=== PATIENT | female | born 1970 | race Caucasian/White ===

== ENCOUNTER 2017-02-16 12:22 | Inpatient (IN) ==
[2017-02-16] MEDS ORDERED: Aspirin 81 MG TAB.CHEW PO ONE (13:25)
--- NOTE | 2017-02-16 13:43 | Emergency Department Note ---
Disposition Clinical Impression: Chest pain Qualifiers: Chest pain type: unspecified Qualified Code(s): R07.9 - Chest pain, unspecified Disposition: Admitted As Inpatient Condition: Good Time of Disposition: 20:00 Chest Pain HPI - General Chief Complaint: ED Chest Pain Stated Complaint: Twinges of CP for last 2-3 wks Time Seen by Provider: 02/16/17 13:09 Source: patient Limitations: no limitations Vital Signs Reviewed: Yes Nursing Notes Reviewed: Yes - History of Present Illness HPI Narrative: Mrs. Joe is a 46-year-old woman with a history of diabetes, hypertension, valvular heart disease, COPD, CAD who presents to the ED with acute chest pain that has been going on for approximately one week in duration. She says that this pain is left-sided chest pain with radiation towards the left jaw and left arm, and is a 6 out of 10 in intensity. Described as a pressure sensation. Although it is constant the patient does have intermittent periods of improvement and worsening. In addition, she does admit to palpitations, shortness of breath and some diaphoresis. Nothing seems to make the pain any better, however she has noticed shortness of breath does get exacerbated with exertion, however she said that this may be a chronic problem. Significantly, the patient does admit that she has had a "silent" heart attack in the past, approximately 15 years ago. She says that this feels very similar to the time that she had chest pain previously. In association with these symptoms, the patient says that she has been increasingly fatigued and tired. She says that she is actually almost lethargic, noting that her has been unable to wake her on several occasions. She denies pleuritic pain, and radiation towards the back. She denies recent travel, active cancer, use of hormones or steroids, recent surgery or hospitalization. She has not had any fevers, chills. Severity scale (1-10): 7 - Related Data Home Medications Medication Instructions Recorded Confirmed Aclidinium [place] [Tudorza 400 mcg IH BID 02/16/17 02/16/17 Pressair] Albuterol Sulfate [Albuterol 2 puff IH Q4HR PRN 02/16/17 02/16/17 Inhaler] Budesonide/Formoterol 160/4.5 1 puff IH BIDR 02/16/17 02/16/17 [Symbicort 160/4.5] EPINEPHrine [Epipen] 0.3 mg IM ONCE PRN 02/16/17 02/16/17 Fluticasone Propionate Nasal 1 spr NS DAILY PRN 02/16/17 02/16/17 [Flonase] Furosemide [Lasix] 20 mg PO DAILY 02/16/17 02/16/17 LORazepam [Ativan] 0.5 mg PO DAILY PRN 02/16/17 02/16/17 Linaclotide [Linzess] 145 mcg PO DAILY 02/16/17 02/16/17 Montelukast [Singulair] 10 mg PO HS 02/16/17 02/16/17 Oxygen 2 l NS HS PRN 02/16/17 02/16/17 Quetiapine Fumarate [Quetiapine 200 mg PO HS 02/16/17 02/16/17 Fumarate ER] Sertraline [Zoloft] 200 mg PO DAILY 02/16/17 02/16/17 hydroCHLOROthiazide 25 mg PO DAILY 02/16/17 02/16/17 [Hydrochlorothiazide] Allergies Allergy/AdvReac Type Severity Reaction Status Date / Time barium sulfate AdvReac Hives Verified 02/16/17 13:57 iodine AdvReac Hives Verified 02/16/17 13:57 latex AdvReac Hives Verified 02/16/17 14:22 Penicillins AdvReac Hives Verified 02/16/17 13:57 prochlorperazine AdvReac See Verified 02/16/17 13:57 [From Compazine] Comments Constitutional: Reports: weakness. Denies: fever, chills, weight change Eyes: Reports: vision change (About 1 week) ENT ED: Denies: congestion Cardiovascular: Reports: chest pain, palpitations, dyspnea on exertion. Denies : edema, syncope Respiratory: Reports: cough, dyspnea. Denies: wheezes, sputum production Gastrointestinal: Reports: abdominal pain, nausea. Denies: vomiting Genitourinary: Reports: frequency. Denies: urgency, hematuria Musculoskeletal: Reports: neck pain. Denies: back pain Neurological: Denies: headache, weakness, numbness Psychiatric: Reports: anxiety. Denies: depression Endocrine: Reports: heat or cold intolerance, polydipsia. Denies: fatigue Hematological/Lymphatic: Denies: easy bleeding Chest Pain PMH - Past Medical History Medical history: Reports: asthma, COPD, coronary artery disease, diabetes, hyperlipidemia, hypertension, thyroid disease, valvular heart disease Psychiatric history: Reports: no psych history - Social History Smoking Status: Never smoker Alcohol use: Reports: none Drug use: Reports: none Physical Exam Gen.: Vitals noted. No acute distress. AAOx3 HEENT: oropharynx clear, Normocephalic, atraumatic, poor dentition Neck: Supple. No adenopathy. Cardiac: RRR, no murmur, +S1/S2 Pulmonary: CTA bilaterally, no wheezes, rales or rhonchi, equal chest expansion Abdomen: soft, nontender, BS noted, no guarding Extremities: no BLE edema, nontender calf, no cyanosis or clubbing Neuro: A&Ox3, moves all extremities, no focal deficits Psych: Appropriate mood and behavior - General Limitations: no limitations General appearance: alert, in no apparent distress Course Vital Signs Temperature 98.6 F 02/16/17 13:00 Pulse Rate 77 02/16/17 13:00 Respiratory Rate 18 02/16/17 13:00 Blood Pressure 144/94 02/16/17 13:00 O2 Sat by Pulse Oximetry 96 02/16/17 13:00 Temperature 97.3 F L 02/16/17 19:05 Pulse Rate 70 02/16/17 19:05 Respiratory Rate 18 02/16/17 19:05 Blood Pressure 126/80 02/16/17 19:05 O2 Sat by Pulse Oximetry 94 02/16/17 19:05 Oxygen Delivery Oxygen Delivery Nasal Cannula Chest Pain - MDM Narrative Medical decision making narrative: I reviewed the patient's labs, imaging, medical records. The patient does present with a previously undocumented left bundle branch block and a one-week history of intermittent chest pain over the past week. Although the patient's chest pain exertional in nature it is relieved by nitroglycerin and it similar to an apparent cardiac event in the past. Initial troponins are negative, and I did monitor the patient's EKG throughout her visit with repeats which did not change throughout her stay. Although the patient did have an elevated white blood cell count, she did not have any other clinical indication of infection at this time. The patient additionally did have a mild hypokalemia 3.1, I repleted this with oral potassium. I did give patient aspirin and nitroglycerin on arrival. I did speak with cardiology about this patient, and they said that with a negative troponin the patient likely does not need any intervention at this time. I spoke with the hospitalist who accepted this patient to telemetry. The patient understands and agrees with this plan. - Differential Diagnosis Likely: chest pain - Medical Records Medical records reviewed: Yes I reviewed the patient's medical records. - Lab Data Lab results reviewed: Yes I reviewed the patient's lab results. Result diagrams: 02/16/17 13:44 02/16/17 13:44 Lab Results 02/16/17 02/16/17 02/16/17 Range/Units 07:31 13:44 13:44 WBC 13.1 H (4.3-11.1) K/mcL RBC 4.38 (3.82-4.97) M/mcL Hgb 12.6 (11.5-15.4) g/dL Hct 36.9 (35.3-44.9) % MCV 84.2 (83.0-100.0) fL MCH 28.8 (28.0-33.3) pg MCHC 34.1 (31.6-35.5) g/dL RDW 15.0 H (11.5-14.5) % Plt Count 353 (140-400) K/mcL MPV 9.5 (9.4-12.4) fL Immature Gran % 0.8 (0-4) % Seg Neutrophils % 57.0 % Lymphocytes % 31.5 % Monocytes % 7.2 % Eosinophils % 3.0 % Basophils % 0.5 % Neutrophils # 7.5 (1.6-8.9) K/mcL Lymphocytes # 4.1 (0.6-4.6) K/mcL Monocytes # 0.9 (0.0-1.3) K/mcL Eosinophils # 0.4 (0.0-0.6) K/mcL Basophils # 0.1 (0.0-0.2) K/mcL PT 12.2 H (9.4-12.1) Seconds INR 1.1 APTT 31.6 (26.0-36.0) Seconds Sodium (136-145) mEq/L Potassium (3.5-5.1) mEq/L Chloride (98-107) mEq/L Carbon Dioxide (23-29) mEq/L BUN (6-20) mg/dL Creatinine (0.60-1.20) mg/dL Est GFR ( Amer) (> 60) Est GFR (Non-Af Amer) (> 60) BUN/Creatinine Ratio (6-26) Glucose (70-105) mg/dL Calculated Osmolality (280-300) Calcium (8.6-10.3) mg/dL Troponin I (< 0.04) ng/mL B-Natriuretic Peptide 86 (Less than 100) pg/mL 02/16/17 02/16/17 Range/Units 13:44 13:44 WBC (4.3-11.1) K/mcL RBC (3.82-4.97) M/mcL Hgb (11.5-15.4) g/dL Hct (35.3-44.9) % MCV (83.0-100.0) fL MCH (28.0-33.3) pg MCHC (31.6-35.5) g/dL RDW (11.5-14.5) % Plt Count (140-400) K/mcL MPV (9.4-12.4) fL Immature Gran % (0-4) % Seg Neutrophils % % Lymphocytes % % Monocytes % % Eosinophils % % Basophils % % Neutrophils # (1.6-8.9) K/mcL Lymphocytes # (0.6-4.6) K/mcL Monocytes # (0.0-1.3) K/mcL Eosinophils # (0.0-0.6) K/mcL Basophils # (0.0-0.2) K/mcL PT (9.4-12.1) Seconds INR APTT (26.0-36.0) Seconds Sodium 139 (136-145) mEq/L Potassium 3.1 L (3.5-5.1) mEq/L Chloride 109 H (98-107) mEq/L Carbon Dioxide 20 L (23-29) mEq/L BUN 5 L (6-20) mg/dL Creatinine 0.55 L (0.60-1.20) mg/dL Est GFR ( Amer) > 60 (> 60) Est GFR (Non-Af Amer) > 60 (> 60) BUN/Creatinine Ratio 9 (6-26) Glucose 100 (70-105) mg/dL Calculated Osmolality 285 (280-300) Calcium 8.9 (8.6-10.3) mg/dL Troponin I < 0.03 (< 0.04) ng/mL B-Natriuretic Peptide (Less than 100) pg/mL - Radiology Data Radiology results reviewed: Yes I reviewed the patient's radiology results. - EKG Data EKG attestation: Yes I reviewed and interpreted this EKG. EKG results narrative: EKG demonstrates sinus rhythm with left axis deviation and a previously undocumented left bundle branch block with a ventricular rate of 77 UT interval of 186 QRS duration 149 QTC 447 Heart Score - Score History: Moderately Suspicious EKG: Non Specific repolarisation Disturbance Age: 45-65 Risk Factors: 1-2 risk factors Troponin: Less than normal limit HEART Score Total: 4
[2017-02-16] MEDS: Nitroglycerin 0.4 MG TAB.SUBL SL ONE ×3 (13:47→15:11)
[2017-02-16 13:52] LABS: Basophils # 0.1 K/mcL (0.0-0.2); Basophils % 0.5 %; Eosinophils # 0.4 K/mcL (0.0-0.6); Hematocrit 36.9 % (35.3-44.9); Hemoglobin 12.6 g/dL (11.5-15.4); Immature Granulocytes % 0.8 % (0-4); Lymphocytes # 4.1 K/mcL (0.6-4.6); Lymphocytes % 31.5 %; Mean Corpuscular HGB Conc 34.1 g/dL (31.6-35.5); Mean Corpuscular Hemoglobin 28.8 pg (28.0-33.3); Mean Corpuscular Volume 84.2 fL (83.0-100.0); Mean Platelet Volume 9.5 fL (9.4-12.4); Monocytes # 0.9 K/mcL (0.0-1.3); Monocytes % 7.2 %; Neutrophils # 7.5 K/mcL (1.6-8.9); Platelet Count 353 K/mcL (140-400); Red Blood Count 4.38 M/mcL (3.82-4.97)
--- NOTE | 2017-02-16 13:52 | Emergency Department Note ---
START Narrative - START START: I examined this patient and my medical decision-making was reviewed with the PHARMACY MANAGER/PA/Advanced Practice Nurse/Resident Physician. I agree with the documented findings, disposition and treatment plan as described except to the extent set forth below. The patient has chest pain which is constant but intermittently worse radiation to the left arm and jaw and no pleuritic aspect or radiation to the back. Symptoms are concerning for ischemia. She does have a positive family history. The patient does have testing pending. Her EKG shows normal sinus rhythm with a rate of 77 and left bundle branch block at 12:41 PM and a repeat EKG at 1:30 PM is similar with a rate of 71 and also showing left bundle branch block 1352 I did speak with Dr. Mederos from cardiology who feels that the patient can be admitted to the hospitalist. Because the pain has been constant with a negative troponin does not feel that a second troponin is necessary at this time. We did discuss the onset of the new left bundle branch block. 1715 I did speak with Dr. Meier and we discussed the conversation with Dr. Mederos and the patient will be admitted to his service for further evaluation of possible acute coronary syndrome 1736
[2017-02-16 14:02] LABS: Calcium 8.9 mg/dL (8.6-10.3); Carbon Dioxide 20 mEq/L (23-29); Chloride 109 mEq/L (98-107); Potassium 3.1 mEq/L (3.5-5.1); Sodium 139 mEq/L (136-145)
[2017-02-16 14:08] LABS: BUN/Creatinine Ratio 9 (6-26); Blood Urea Nitrogen 5 mg/dL (6-20); Glucose 100 mg/dL (70-105); Osmolality,Calculated 285 (280-300); eGFR For African Americans > 60 (> 60); eGFR For Non-African Americans > 60 (> 60)
[2017-02-16 14:14] LABS: INR 1.1; Prothrombin Time 12.2 Seconds (9.4-12.1)
[2017-02-16 14:16] LABS: Activated Partial Thrombo Time 31.6 Seconds (26.0-36.0)
[2017-02-16] MEDS ORDERED: Fluticasone Propionate Nasal 50 MCG/SPRAY BOTTLE NS PRN (21:30)
[2017-02-16] MEDS ORDERED: Naloxone 0.4 MG/ML INJ IVP PRN (21:31)
--- NOTE | 2017-02-16 21:43 | Internal Med History&Physical ---
Date of Encounter: 02/16/17 Time of Encounter: 21:41 Assessment and Plan (1) LBBB (left bundle branch block) Current visit: Yes Status: Acute check TTE , trend trop consult cardiac for eval and possible LHC vs. stress first (2) HTN (hypertension) Current visit: Yes Status: Acute Qualifiers: Hypertension type: essential hypertension Qualified Code(s): I10 - Essential (primary) hypertension (3) COPD (chronic obstructive pulmonary disease) Current visit: Yes Status: Acute continue meds chronic Qualifiers: COPD type: chronic bronchitis Qualified Code(s): J41.0 - Simple chronic bronchitis Internal Medicine - H&P: HPI Chief complaint: Abnormal pre-op EKG History of present illness: Ms. Joe is a 46 year old female who presents for cardiac eval after abnormal pre-op testing. She was down in pre-op today for testing in preparation for L knee revision surgery with Dr Sánchez. EKG with rate 77, LBBB that is new (personally reviewed) . On review of symptoms, she reports CP symptoms for the last 1 week described as squeezing in sensation, radiating to the neck and arm. She reports a "silent heart attack" in 1999 in [facility] and had a LHC w/o need for stent She has a family hx of CAD, significant heart hx of family. Past Med Surg Social Fam HX - Past Medical History Medical history: asthma, COPD, coronary artery disease, diabetes, hyperlipidemia , hypertension, thyroid disease, valvular heart disease Psychiatric history: no psych history - Past Surgical History Surgical History: other (knee surgeries prior) - Social History Smoking Status: Never smoker Smokeless Tobacco Status: No Alcohol use: none Drug use: none - Family History Mother Living Status: Still Living Hx Family Cardiac Disorders: Yes (stents fistula) Father Living Status: Still Living Hx Family Cardiac Disorders: Yes (stents) Grandmother Living Status: Hx Family Cardiac Disorders: Yes (CO at 40) Internal Medicine - H&P: Meds Aclidinium [place] [Tudorza Pressair] 400 mcg IH BID 02/16/17 [History] Albuterol Sulfate [Albuterol Inhaler] 2 puff IH Q4HR PRN 02/16/17 [History] Budesonide/Formoterol 160/4.5 [Symbicort 160/4.5] 1 puff IH BIDR 02/16/17 [ History] EPINEPHrine [Epipen] 0.3 mg IM ONCE PRN 02/16/17 [History] Fluticasone Propionate Nasal [Flonase] 1 spr NS DAILY PRN 02/16/17 [History] Furosemide [Lasix] 20 mg PO DAILY 02/16/17 [History] LORazepam [Ativan] 0.5 mg PO DAILY PRN 02/16/17 [History] Linaclotide [Linzess] 145 mcg PO DAILY 02/16/17 [History] Montelukast [Singulair] 10 mg PO HS 02/16/17 [History] Oxygen 2 l NS HS PRN 02/16/17 [History] Quetiapine Fumarate [Quetiapine Fumarate ER] 200 mg PO HS 02/16/17 [History] Sertraline [Zoloft] 200 mg PO DAILY 02/16/17 [History] hydroCHLOROthiazide [Hydrochlorothiazide] 25 mg PO DAILY 02/16/17 [History] 3 Allergy/AdvReac Type Severity Reaction Status Date / Time barium sulfate AdvReac Hives Verified 02/16/17 13:57 iodine AdvReac Hives Verified 02/16/17 13:57 latex AdvReac Hives Verified 02/16/17 14:22 Penicillins AdvReac Hives Verified 02/16/17 13:57 prochlorperazine AdvReac See Verified 02/16/17 13:57 [From Compazine] Comments All Systems PM: A 10-system review of systems was performed and is negative for pertinent findings except as documented above in the HPI. Review of systems: ROS 14 point review of systems reviewed as best as possible given presentation. Pertinent positive or negative as per HPI or otherwise reviewed as negative - Constitutional Vitals: Temp Pulse Resp BP Pulse Ox 97.3 F L 70 18 126/80 94 02/16/17 19:05 02/16/17 19:05 02/16/17 19:05 02/16/17 19:05 02/16/17 19:05 Exam: General - AAO x 3 Psych - Appropriate affect/speech. No agitation Eyes - MATIAS. Eye lids intact. No scleral icterus Heart - Sinus. RRR. S1 and S2 present. No added HS/murmurs appreciated. No elevated JVD appreciated. Lung - Adequate air entry b/l, No crackles/wheezes appreciated GI - Soft, non-tender. No hepatosplenomegaly/ascites. BS+ - No CVA/suprapubic tenderness or palpable bladder distension Internal Med - H&P Results - Labs CBC & Chem 7: 02/16/17 13:44 02/16/17 13:44
[2017-02-16] MEDS ORDERED: Acetaminophen 325 MG TABLET PO PRN (22:28)
[2017-02-16] MEDS: Budesonide/Formoterol 160/4.5 MDI IH SCH (22:48)
[2017-02-16] MEDS: *HR* Morphine 2 MG/ML SYRINGE IVP PRN (23:12)
[2017-02-17] MEDS: *HR* Morphine 2 MG/ML SYRINGE IVP PRN ×4 (03:33→22:35)
[2017-02-17] MEDS: Budesonide/Formoterol 160/4.5 MDI IH SCH ×2 (08:50→22:18)
[2017-02-17] MEDS: Linaclotide [Linzess] 145 MCG PO SCH (08:51)
[2017-02-17] MEDS: Furosemide 20 MG TABLET PO SCH (08:52)
[2017-02-17] MEDS: hydroCHLOROthiazide 25 MG TABLET PO SCH (08:52)
--- NOTE | 2017-02-17 08:52 | Electrocardiograph Report ---
[address] [place], [place] [address] Test Date: 2017-02-16 Pat Name: Sena Joe Department: 102 Room: 3B Gender: Director Cardiac: La : 1970 Requested By: Nirav Lincoln Order Number: [id number] Reading MD: Peña Davison MD Measurements Intervals [place] Rate: 71 P: 49 [place]: 191 QRS: -55 QRSD: 146 T: 98 QT: 470 QTc: 492 Interpretive Statements SINUS RHYTHM MARKED LEFT AXIS DEVIATION LEFT BUNDLE BRANCH BLOCK Electronically Signed On 02-17-2017 8:50:46 EST by Peña Davison MD
[2017-02-17] MEDS ORDERED: Regadenoson 0.4 MG/5 ML SYRINGE IVP ONE (09:17)
--- NOTE | 2017-02-17 12:23 | Electrocardiograph Report ---
[address] [place], [place] [address] Test Date: 2017-02-16 Pat Name: Sena Joe Department: 103 Room: 3B Gender: F Resident Service Coordinator: DONALD : 1970 Requested By: Gaby Truong Order Number: [id number] Reading MD: Peña Davison MD Measurements Intervals [place] Rate: 71 P: 38 [place]: 194 QRS: -57 QRSD: 149 T: 87 QT: 449 QTc: 471 Interpretive Statements SINUS RHYTHM MARKED LEFT AXIS DEVIATION LEFT BUNDLE BRANCH BLOCK Electronically Signed On 02-17-2017 12:22:24 EST by Peña Davison MD
--- NOTE | 2017-02-17 12:38 | Electrocardiograph Report ---
[address] [place], [place] [address] Test Date: 2017-02-17 Pat Name: Sena Joe Department: 113 Room: 3B Gender: F Hospital Cleaner: : 1970 Requested By: David Parker Order Number: [id number] Reading MD: Peña Davison MD Measurements Intervals [place] Rate: 62 P: -1 NM: 167 QRS: -50 QRSD: 144 T: 86 QT: 468 QTc: 473 Interpretive Statements SINUS RHYTHM MARKED LEFT AXIS DEVIATION LEFT BUNDLE BRANCH BLOCK Electronically Signed On 02-17-2017 12:36:11 EST by Peña Davison MD
--- NOTE | 2017-02-17 16:24 | Internal Med Progress Note ---
Date of Encounter: 02/17/17 Time of Encounter: 14:00 - Assessment and plan (1) CAD (coronary artery disease) Current Visit: Yes Status: Acute Assessment and plan: patient reports history of OR at 29 years of age. Follows with cardiology at [facility]. Now with constant chest pain. Serial troponin negative, EKG without acute ST changes. TTE with EF 60%, no wall motion abnormality. Nuclear stress test negative for ischemia or infarct. Patient reports that her primary supervisor [employer] department was planning an outpatient C. Still with complaints of chest pain. Cardiology consult. Cont ASA Qualifiers: Coronary Disease-Associated Artery/Lesion type: [place] artery [place] vs. transplanted heart: [place] heart Associated angina: with unspecified angina Qualified Code(s): I25.119 - Atherosclerotic heart disease of [place] coronary artery with unspecified angina pectoris (2) HTN (hypertension) Current Visit: Yes Status: Acute Assessment and plan: per hx. BP controlled. Cont home BP medication. Monitor BP and titrate PRN Qualifiers: Hypertension type: essential hypertension Qualified Code(s): I10 - Essential (primary) hypertension (3) COPD (chronic obstructive pulmonary disease) Current Visit: Yes Status: Acute Assessment and plan: per hx. CXR non-acute. No evidence of exacerbation. Continue home inhalers Qualifiers: COPD type: chronic bronchitis Qualified Code(s): J41.0 - Simple chronic bronchitis (4) DVT prophylaxis Current Visit: Yes Status: Acute Assessment and plan: heparin - Subjective Interval history: Seen and examined at bedside. Patient is due to nd, information obtained from chart review and patient report. Patient is still complaining of left-sided chest pain that radiates to jaw and down arm. Describes pain as a twinging sensation, nothing makes better or worse. She does have a cardiac history and follows with cardiology as [facility]. Patient reports that her supervisor [employer] department is planning on a left heart catheterization. Stress test pending. Continue to monitor on telemetry for now. No shortness of breath. - Constitutional Vitals: Temp Pulse Resp BP Pulse Ox 98.4 F 85 17 131/79 94 02/17/17 15:33 02/17/17 15:33 02/17/17 15:33 02/17/17 15:33 02/17/17 15:33 General appearance: Present: A&O X 3, no acute distress - Head Head exam: Present: atraumatic, normocephalic - Eye Eye exam: Present: PERRL, conjuntiva pink, sclera anicteric Pupils: Present: PERRL - Neck Neck exam general surgery: Present: supple, trachea midline. Absent: lymphadenopathy - Respiratory Respiratory exam: Present: CTAB. Absent: accessory muscle use, rales, rhonchi, wheezes - Cardiovascular Cardiovascular exam: Present: RRR, +S1, +S2. Absent: diastolic murmur, gallop, rubs, systolic murmur - GI/Abdominal GI/Abdominal exam: Present: normal bowel sounds, soft, no peritoneal signs. Absent: distended, tenderness - Extremities Exam Extremities exam: Present: warm, radial pulses palpable and symmetrical. Absent : calf tenderness, cyanotic, pedal edema - Neurological Exam Neurological exam: Present: CN II-XII intact, oriented X3, no focal deficits. Absent: pronater drift, facial droop, speech deficit - Skin Skin exam: Present: dry, intact Internal Medicine: Result - Labs CBC & Chem 7: 02/16/17 13:44 02/16/17 13:44 Labs: Cardiac Enzymes 02/16/17 02/17/17 Range/Units 21:51 06:00 Troponin I < 0.03 < 0.03 (< 0.04) ng/mL - ABG Interpretation ABG results: PT/INR, D-dimer PT 12.2 Seconds (9.4-12.1) H 02/16/17 13:44 - Impressions Impressions Echocardiogram 02/17/17 21:47 Impressions: LVEF 60-65%. Normal LV chamber size, wall thickness and function. Moderate left ventricular diastolic dysfunction. Normal right ventricular structure and function. Mild mitral regurgitation. No evidence of pulmonary hypertension. Left Ventricular Wall Motion: Rest Echo Findings All wall segments showed normal motion. Findings: Study Quality * Technically adequate exam. ECG Findings * Normal sinus rhythm. Left Ventricle * LVEF 60-65%. * Normal LV chamber size, wall thickness and function. * Moderate left ventricular diastolic dysfunction. Right Ventricle * Normal right ventricular structure and function. Left Atrium * Mildly dilated left atrium. Right Atrium * Mildly dilated right atrium. Interatrial Septum * Interatrial septum not well evaluated. Aortic Valve * Trileaflet aortic valve with normal function. * No aortic stenosis. * No aortic regurgitation. Mitral Valve * Normal mitral valve structure. * Mild mitral regurgitation. * No mitral stenosis. Tricuspid Valve * Normal tricuspid valve structure and function. * Trace tricuspid regurgitation. * No evidence of pulmonary hypertension. Pulmonic Valve * Normal pulmonic valve structure and function. * No pulmonic regurgitation. Aorta * Normally sized aortic root. Pericardium * The pericardium appears normal. IVC * Normal IVC dimensions and inspiratory collapse. Pulmonary Artery * Normal visualized portions of the main pulmonary artery. Consult Discharge Plan - Plan Referrals: NONE,PCP [Primary Care Provider] -
[2017-02-17] MEDS: Aspirin 81 MG TAB.CHEW PO SCH (17:32)
[2017-02-17] MEDS: *HR* Heparin 5,000 UNIT/ML VIAL SQ SCH (20:35)
[2017-02-18] MEDS: *HR* Morphine 2 MG/ML SYRINGE IVP PRN (04:55)
[2017-02-18] MEDS: *HR* Heparin 5,000 UNIT/ML VIAL SQ SCH ×3 (04:55→21:38)
[2017-02-18 05:08] LABS: Hemoglobin A1C 5.2 %
[2017-02-18 05:15] LABS: BUN/Creatinine Ratio 18 (6-26); Blood Urea Nitrogen 9 mg/dL (6-20); Calcium 9.4 mg/dL (8.6-10.3); Carbon Dioxide 25 mEq/L (23-29); Chloride 105 mEq/L (98-107); Chol/HDL Ratio 3.5 (0-4.9); Cholesterol 179 mg/dL (< 200); Glucose 96 mg/dL (70-105); HDL Cholesterol 51 mg/dL (40-59); LDL Cholesterol,Calculated 101 mg/dL (0-99); Osmolality,Calculated 283 (280-300); Potassium 3.9 mEq/L (3.5-5.1); Sodium 137 mEq/L (136-145); Triglycerides 134 mg/dL (< 150); eGFR For African Americans > 60 (> 60); eGFR For Non-African Americans > 60 (> 60)
[2017-02-18] MEDS: Budesonide/Formoterol 160/4.5 MDI IH SCH ×2 (08:05→20:50)
[2017-02-18 09:34] LABS: Hematocrit 41.2 % (35.3-44.9); Hemoglobin 13.4 g/dL (11.5-15.4); Mean Corpuscular HGB Conc 32.5 g/dL (31.6-35.5); Mean Corpuscular Hemoglobin 28.6 pg (28.0-33.3); Mean Platelet Volume 9.8 fL (9.4-12.4); Platelet Count 331 K/mcL (140-400); Red Blood Count 4.68 M/mcL (3.82-4.97); Red Cell Distribution Width 15.4 % (11.5-14.5)
[2017-02-18] MEDS: hydroCHLOROthiazide 25 MG TABLET PO SCH (09:53)
[2017-02-18] MEDS: Aspirin 81 MG TAB.CHEW PO SCH (09:53)
[2017-02-18] MEDS: Furosemide 20 MG TABLET PO SCH (09:53)
[2017-02-18] MEDS: Linaclotide [Linzess] 145 MCG PO SCH (09:54)
[2017-02-18] MEDS: *HR* LORazepam 0.5 MG TABLET PO PRN (09:54)
[2017-02-18 10:59] LABS: Adenovirus Not Detected (Not Detect); Bordetella Pertussis Not Detected (Not Detect); Chlamydophila pneumoniae Not Detected (Not Detect); Coronavirus 229E Not Detected (Not Detect); Coronavirus HKU1 Not Detected (Not Detect); Coronavirus NL63 Not Detected (Not Detect); Coronavirus OC43 Not Detected (Not Detect); Human Metapneumovirus Not Detected (Not Detect); Human Rhinovirus/Enterovirus Not Detected (Not Detect); Influenza A Subtype 2009 H1 Not Detected (Not Detect); Influenza A Untypeable Not Detected (Not Detect); Influenza B Not Detected (Not Detect); Mycoplasma pneumoniae Not Detected (Not Detect); Parainfluenza Virus 1 Not Detected (Not Detect); Parainfluenza Virus 2 Not Detected (Not Detect); Parainfluenza Virus 3 Not Detected (Not Detect); Parainfluenza Virus 4 Not Detected (Not Detect); Respiratory Syncytial Virus ***DETECTED*** (Not Detect)
--- NOTE | 2017-02-18 11:37 | Cardiology Consult Note ---
Date of Encounter: 02/18/17 Time of Encounter: 11:35 Assessment and Plan (1) LORENZ (dyspnea on exertion) Current Visit: Yes Status: Chronic Possible angina equivalent however less likely with -ve stress test and recent - ve LHC. Possible HF with preserved EF due to DD. Hypertension may be culprit. Outpatient agresive medical management of HTN and CHF with primary Airport Security Screener at [facility] Code(s): R06.09 - Other forms of dyspnea SNOMED Code(s): 91398754 (2) Chest pain Current Visit: Yes Status: Chronic Likely non ischemic, no criteria for LHC at this time. okay to DC home and follow with her Airport Security Screener Qualifiers: Chest pain type: precordial pain Qualified Code(s): R07.2 - Precordial pain Discussion w patient/family: The assessment and plan as outlined above was discussed with the patient and/or family members who expressed understanding and agreement. All questions were answered. Thank you for involving us in the care of your patient. Please call with any questions. History of Present Illness Consult date: 02/18/17 Consult reason: Chest pain Chief complaint: Chest pain History of present illness: Ms. Joe is a 46 year old female with multipple CRFs presents with atypical chest pain felt as stabbing pain lastiig few seconds at a time with a constant baseline dull aching pain lasting weeks. Pain is non exertional however she does complain of LORENZ. No associated symptoms with her chest pain. Negative Canidda and EKG. Previous [facility] 2016 was unremarkable as per pt. Recent stress test performed at [facility] negative with a preserved EF. ECHO with preserved EF and moderate DD. Past Med Surg Social Fam HX - Past Medical History Medical history: asthma, COPD, coronary artery disease, diabetes, hyperlipidemia , hypertension, thyroid disease, valvular heart disease Psychiatric history: no psych history - Past Surgical History Surgical History: other (knee surgeries prior) - Social History Smoking Status: Never smoker Smokeless Tobacco Status: No Alcohol use: none Drug use: none - Family History Mother Living Status: Still Living Hx Family Cardiac Disorders: Yes (stents fistula) Father Living Status: Still Living Hx Family Cardiac Disorders: Yes (stents) Grandmother Living Status: Hx Family Cardiac Disorders: Yes (LA at 40) Medications and Allergies Aclidinium [place] [Tudorza Pressair] 400 mcg IH BID 02/16/17 [History] Albuterol Sulfate [Albuterol Inhaler] 2 puff IH Q4HR PRN 02/16/17 [History] Budesonide/Formoterol 160/4.5 [Symbicort 160/4.5] 1 puff IH BIDR 02/16/17 [ History] EPINEPHrine [Epipen] 0.3 mg IM ONCE PRN 02/16/17 [History] Fluticasone Propionate Nasal [Flonase] 1 spr NS DAILY PRN 02/16/17 [History] Furosemide [Lasix] 20 mg PO DAILY 02/16/17 [History] LORazepam [Ativan] 0.5 mg PO DAILY PRN 02/16/17 [History] Linaclotide [Linzess] 145 mcg PO DAILY 02/16/17 [History] Montelukast [Singulair] 10 mg PO HS 02/16/17 [History] Oxygen 2 l NS HS PRN 02/16/17 [History] Quetiapine Fumarate [Quetiapine Fumarate ER] 200 mg PO HS 02/16/17 [History] Sertraline [Zoloft] 200 mg PO DAILY 02/16/17 [History] hydroCHLOROthiazide [Hydrochlorothiazide] 25 mg PO DAILY 02/16/17 [History] 3 Allergy/AdvReac Type Severity Reaction Status Date / Time barium sulfate AdvReac Hives Verified 02/16/17 13:57 iodine AdvReac Hives Verified 02/16/17 13:57 latex AdvReac Hives Verified 02/16/17 14:22 Penicillins AdvReac Hives Verified 02/16/17 13:57 prochlorperazine AdvReac See Verified 02/16/17 13:57 [From Compazine] Comments All Systems Review: A 10-system review of systems was performed and is negative for pertinent findings except as documented above in the HPI. Physical Examination Vital Signs, Last 4 Hours Temp Pulse Resp BP Pulse Ox 02/18/17 11:21 97.5 F L 75 17 117/82 94 02/18/17 07:49 97.4 F L 76 18 133/86 93 General: Conversant, No Apparent Distress HEENT: Atraumatic, Normocephaly, Mucus Membranes Moist Neck: No JVD, Normal carotid pulses Cardiac: Reg Rate and Rhythm, Normal S1 and S2, No Murmur Lungs: Normal Breath Sounds, No Wheeze, Rales, Rhonchi Neuro: Alert and responsive, No focal deficits noted Abdomen: Soft, Non-Tender Skin: No rashes noted on visualized skin Musculoskeletal: No Chest Wall Tenderness Extremities: No Clubbing, No Cyanosis, No Edema, Normal Pulses Results 02/18/17 04:31 02/18/17 04:31 Lab Results 02/18/17 02/18/17 04:31 04:31 WBC 11.5 H Hgb 13.4 Hct 41.2 Plt Count 331 Sodium 137 Potassium 3.9 Chloride 105 Carbon Dioxide 25 BUN 9 Creatinine 0.51 L Glucose 96 Calcium 9.4 Consult Discharge Plan - Plan Referrals: NONE,PCP [Primary Care Provider] -
[2017-02-18] MEDS: *HR* OxyCODONE Immed Rel 5 MG TABLET PO PRN ×2 (12:34→21:37)
--- NOTE | 2017-02-18 18:32 | Internal Med Progress Note ---
Date of Encounter: 02/18/17 Time of Encounter: 13:00 - Assessment and plan (1) CAD (coronary artery disease) Current Visit: Yes Status: Acute Assessment and plan: patient reports history of UT at 29 years of age. Follows with cardiology at [facility]. Preadmission testing EKG with new LBBB and patient reported intermittent chest pain therefore was sent to ER. Serial troponin negative, EKG without acute ST changes. TTE with EF 60%, no wall motion abnormality. Nuclear stress test negative for ischemia or infarct. Evaluated by Cardiology who noted angina equivalent unlikely and chest pain possibly secondary to HF with preserved EF due to DD and/or hypertension may be culprit. Aggressive medical management recommended, no indication for LHC at this time. Furthermore, chest pain is reproducible bn exam. Cont ASA. Monitor on tele Qualifiers: Coronary Disease-Associated Artery/Lesion type: [place] artery [place] vs. transplanted heart: [place] heart Associated angina: with unspecified angina Qualified Code(s): I25.119 - Atherosclerotic heart disease of [place] coronary artery with unspecified angina pectoris (2) RSV infection Current Visit: Yes Status: Acute Assessment and plan: Resp disease panel positive for RSV. Afebrile, WBC trending down. CXR without infiltrate. Supportive care (3) HTN (hypertension) Current Visit: Yes Status: Acute Assessment and plan: per hx. BP controlled. Cont home BP medication. Monitor BP and titrate PRN Qualifiers: Hypertension type: essential hypertension Qualified Code(s): I10 - Essential (primary) hypertension (4) COPD (chronic obstructive pulmonary disease) Current Visit: Yes Status: Acute Assessment and plan: per hx. CXR non-acute. No evidence of exacerbation. Continue home inhalers Qualifiers: COPD type: unspecified COPD Qualified Code(s): J44.9 - Chronic obstructive pulmonary disease, unspecified (5) Osteoarthritis of left knee Current Visit: Yes Status: Acute Assessment and plan: per hx. Follows with Dr. Sánchez. Left knee replacement planned 02/20/17 Qualifiers: Osteoarthritis type: primary Qualified Code(s): M17.12 - Unilateral primary osteoarthritis, left knee (6) DVT prophylaxis Current Visit: Yes Status: Acute Assessment and plan: heparin - Subjective Interval history: Seen and examined at bedside. Says she is still having intermittent chest pain, has some SOB but nothing new from baseline. She does not feel she is ready to go home yet. - Constitutional Vitals: Temp Pulse Resp BP Pulse Ox 98.0 F 78 16 111/66 91 02/18/17 16:30 02/18/17 16:30 02/18/17 16:30 02/18/17 16:30 02/18/17 16:30 General appearance: Present: A&O X 3, no acute distress - Head Head exam: Present: atraumatic, normocephalic - Eye Eye exam: Present: PERRL, conjuntiva pink, sclera anicteric Pupils: Present: PERRL - Neck Neck exam general surgery: Present: supple, trachea midline. Absent: lymphadenopathy - Respiratory Respiratory exam: Present: chest wall tenderness, CTAB. Absent: accessory muscle use, rales, rhonchi, wheezes - Cardiovascular Cardiovascular exam: Present: RRR, +S1, +S2. Absent: diastolic murmur, gallop, rubs, systolic murmur - GI/Abdominal GI/Abdominal exam: Present: normal bowel sounds, soft, no peritoneal signs. Absent: distended, tenderness - Extremities Exam Extremities exam: Present: warm, radial pulses palpable and symmetrical. Absent : calf tenderness, cyanotic, pedal edema - Neurological Exam Neurological exam: Present: CN II-XII intact, oriented X3, no focal deficits. Absent: pronater drift, facial droop, speech deficit - Skin Skin exam: Present: dry, intact Internal Medicine: Result - Labs CBC & Chem 7: 02/18/17 04:31 02/18/17 04:31 Labs: Short CBC 02/18/17 Range/Units 04:31 WBC 11.5 H (4.3-11.1) K/mcL Hgb 13.4 (11.5-15.4) g/dL Hct 41.2 (35.3-44.9) % Plt Count 331 (140-400) K/mcL BMP 02/18/17 04:31 Sodium 137 Potassium 3.9 Chloride 105 Carbon Dioxide 25 BUN 9 Creatinine 0.51 L Glucose 96 Calcium 9.4 - ABG Interpretation ABG results: PT/INR, D-dimer PT 12.2 Seconds (9.4-12.1) H 02/16/17 13:44 Consult Discharge Plan - Plan Referrals: NONE,PCP [Primary Care Provider] -
[2017-02-18] MEDS: Ondansetron ODT 4 MG TAB.RAPDIS SL PRN (18:36)
[2017-02-19] MEDS: *HR* Heparin 5,000 UNIT/ML VIAL SQ SCH ×3 (05:43→20:11)
[2017-02-19] MEDS: *HR* OxyCODONE Immed Rel 5 MG TABLET PO PRN ×3 (05:43→19:59)
[2017-02-19] MEDS: Furosemide 20 MG TABLET PO SCH (09:38)
[2017-02-19] MEDS: Linaclotide [Linzess] 145 MCG PO SCH (09:38)
[2017-02-19] MEDS: Aspirin 81 MG TAB.CHEW PO SCH (09:38)
[2017-02-19] MEDS: hydroCHLOROthiazide 25 MG TABLET PO SCH (09:38)
[2017-02-19] MEDS: *HR* LORazepam 0.5 MG TABLET PO PRN (09:39)
[2017-02-19] MEDS: Budesonide/Formoterol 160/4.5 MDI IH SCH ×2 (11:03→21:59)
--- NOTE | 2017-02-19 15:20 | Internal Med Progress Note ---
Date of Encounter: 02/19/17 Time of Encounter: 12:30 - Assessment and plan (1) Osteoarthritis of left knee Current Visit: Yes Status: Acute Assessment and plan: per hx. Follows with Dr. Sánchez. Was at pre-admission testing on 02/17/17 when abnormal EKG was noted. Left knee replacement planned 02/20/17. Patient requested to stay inpatient for surgery. Dr. Sánchez aware. NPO at midnight. Qualifiers: Osteoarthritis type: primary Qualified Code(s): M17.12 - Unilateral primary osteoarthritis, left knee (2) CAD (coronary artery disease) Current Visit: Yes Status: Acute Assessment and plan: patient reports history of DC at 29 years of age. Follows with cardiology at [facility]. Preadmission testing EKG with new LBBB and patient reported intermittent chest pain therefore was sent to ER. Serial troponin negative, EKG without acute ST changes. TTE with EF 60%, no wall motion abnormality. Nuclear stress test negative for ischemia or infarct. Evaluated by Cardiology who noted angina equivalent unlikely and chest pain possibly secondary to HF with preserved EF due to DD and/or hypertension may be culprit. Aggressive medical management recommended, no indication for LHC at this time. Furthermore, chest pain is reproducible bn exam. Cont ASA. Monitor on tele Qualifiers: Coronary Disease-Associated Artery/Lesion type: [place] artery [place] vs. transplanted heart: [place] heart Associated angina: with unspecified angina Qualified Code(s): I25.119 - Atherosclerotic heart disease of [place] coronary artery with unspecified angina pectoris (3) RSV infection Current Visit: Yes Status: Acute Assessment and plan: Resp disease panel positive for RSV. Afebrile, WBC trending down. CXR without infiltrate. Supportive care (4) HTN (hypertension) Current Visit: Yes Status: Acute Assessment and plan: per hx. BP controlled. Cont home BP medication. Monitor BP and titrate PRN Qualifiers: Hypertension type: essential hypertension Qualified Code(s): I10 - Essential (primary) hypertension (5) COPD (chronic obstructive pulmonary disease) Current Visit: Yes Status: Acute Assessment and plan: per hx. CXR non-acute. No evidence of exacerbation. Continue home inhalers Qualifiers: COPD type: unspecified COPD Qualified Code(s): J44.9 - Chronic obstructive pulmonary disease, unspecified (6) DVT prophylaxis Current Visit: Yes Status: Acute Assessment and plan: heparin - Subjective Interval history: Seen and examined at bedside. Says she feels nauseated and still not able to go home. No chest pain or shortness of breath today. Generally encouraged her to ambulate/get out of bed for meals. Discussed with Dr. Sánchez and he is aware the patient will be staying again overnight and surgery still planned for tomorrow. - Constitutional Vitals: Temp Pulse Resp BP Pulse Ox 98.3 F 94 16 101/69 90 02/19/17 11:21 02/19/17 11:21 02/19/17 11:21 02/19/17 11:21 02/19/17 11:21 General appearance: Present: A&O X 3, no acute distress - Head Head exam: Present: atraumatic, normocephalic - Eye Eye exam: Present: PERRL, conjuntiva pink, sclera anicteric Pupils: Present: PERRL - Neck Neck exam general surgery: Present: supple, trachea midline. Absent: lymphadenopathy - Respiratory Respiratory exam: Present: CTAB. Absent: accessory muscle use, rales, rhonchi, wheezes - Cardiovascular Cardiovascular exam: Present: RRR, +S1, +S2. Absent: diastolic murmur, gallop, rubs, systolic murmur - GI/Abdominal GI/Abdominal exam: Present: normal bowel sounds, soft, no peritoneal signs. Absent: distended, tenderness - Extremities Exam Extremities exam: Present: warm, radial pulses palpable and symmetrical. Absent : calf tenderness, cyanotic, pedal edema - Neurological Exam Neurological exam: Present: CN II-XII intact, oriented X3, no focal deficits. Absent: pronater drift, facial droop, speech deficit - Skin Skin exam: Present: dry, intact Internal Medicine: Result - Labs CBC & Chem 7: 02/18/17 04:31 02/18/17 04:31 - ABG Interpretation ABG results: PT/INR, D-dimer PT 12.2 Seconds (9.4-12.1) H 02/16/17 13:44 Consult Discharge Plan - Plan Referrals: NONE,PCP [Primary Care Provider] -
[2017-02-20] MEDS: Ondansetron ODT 4 MG TAB.RAPDIS SL PRN (02:09)
[2017-02-20] MEDS: *HR* Heparin 5,000 UNIT/ML VIAL SQ SCH (06:18)
[2017-02-20] MEDS: *HR* OxyCODONE Immed Rel 5 MG TABLET PO PRN ×4 (06:19→22:56)
--- NOTE | 2017-02-20 06:58 | Orthopedics Progress Note ---
Date of Encounter: 02/20/17 Time of Encounter: 06:58 Subjective Interval history: Patient seen this morning cleared for revision surgery. We reviewed the risks and benefits as well as recovery. All questions were answered. The patient agreed to this treatment plan and appeared to understand the plan is reviewed. Objective Vital signs: Vital Signs Temp Pulse Resp BP Pulse Ox 02/20/17 03:07 98.2 F 89 16 113/75 95 02/19/17 22:44 98.6 F 84 16 111/77 97 02/19/17 22:02 14 98 02/19/17 18:31 98.4 F 85 16 115/81 98 02/19/17 15:41 97.9 F 86 18 116/76 92 02/19/17 11:21 98.3 F 94 16 101/69 90 02/19/17 11:04 18 95 02/19/17 07:42 97.7 F 84 18 119/87 95 Intake and Output 02/19/17 02/19/17 02/20/17 15:59 23:59 07:59 Intake Total 720 / 720 240 / 240 Output Total 600 / 600 1300 / 1300 900 / 900 Balance 120 / 120 -1060 / -1060 -900 / -900 Intake: Oral 720 / 720 240 / 240 Output: Urine 600 / 600 1300 / 1300 900 / 900 Other: Meal water pitcher Lunch Percent of Meal Consumed 100% 80% Weight 87.7 kg Blood Glucose* 113 101 Patient Weight 02/20/17 23:59 Weight 87.7 kg - Labs CBC & BMP: 02/18/17 04:31 02/18/17 04:31 Labs: Abnormal lab results WBC 11.5 K/mcL (4.3-11.1) H 02/18/17 04:31 RDW 15.4 % (11.5-14.5) H 02/18/17 04:31 PT 12.2 Seconds (9.4-12.1) H 02/16/17 13:44 Creatinine 0.51 mg/dL (0.60-1.20) L 02/18/17 04:31 POC Glucose 101 (58-89) H 02/19/17 19:59 LDL Cholesterol, Calc 101 mg/dL (0-99) H 02/18/17 04:31 RSV (PCR) DETECTED (Not Detect) A 02/18/17 09:59 Consult Discharge Plan - Plan Referrals: NONE,PCP [Primary Care Provider] -
[2017-02-20] MEDS ORDERED: *HR* Midazolam HCl 2 MG/2 ML VIAL ONE (07:47)
[2017-02-20] MEDS ORDERED: *HR* Propofol 200 MG/20 ML VIAL IVP ONE (07:47)
[2017-02-20] MEDS ORDERED: Dexamethasone 4 MG/ML VIAL ONE (07:47)
[2017-02-20] MEDS ORDERED: *HR* FentaNYL (PF) 100 MCG/2 ML VIAL ONE ×2 (07:47→08:36)
[2017-02-20] MEDS ORDERED: *HR* Phenylephrine 10 MG/ML VIAL ONE (07:47)
[2017-02-20] MEDS ORDERED: Lidocaine -MPF 2% 2 ML VIAL ONE (07:47)
[2017-02-20] MEDS ORDERED: Ondansetron 4 MG/2 ML VIAL ONE ×2 (07:47→10:44)
[2017-02-20] MEDS ORDERED: Ethanol\\Acetic Acid\\Na Ace\\Ben 1,000 ML IRRIG.SOLN IR ONE (07:54)
--- NOTE | 2017-02-20 07:56 | Anesthesia Evaluation PreOp ---
Date of Encounter: 02/20/17 Time of Encounter: 07:52 - Past History Planned Operation: Left Total Knee Arthroplasty Cardiac History: HTN, Hyperlipidemia Pulmonary History: Asthma, COPD (home O2 qhs), Other (RSV) Other Medical History: Hepatic (non-alcoholic fatty liver), Diabetes Type II, Thyroid Anesthesia History: No Prior Anesthetic Complications, Past Anesthesia Alcohol Use: none Drug use: none Medications and Allergies Aclidinium [place] [Tudorza Pressair] 400 mcg IH BID 02/16/17 [History] Albuterol Sulfate [Albuterol Inhaler] 2 puff IH Q4HR PRN 02/16/17 [History] Budesonide/Formoterol 160/4.5 [Symbicort 160/4.5] 1 puff IH BIDR 02/16/17 [ History] EPINEPHrine [Epipen] 0.3 mg IM ONCE PRN 02/16/17 [History] Fluticasone Propionate Nasal [Flonase] 1 spr NS DAILY PRN 02/16/17 [History] Furosemide [Lasix] 20 mg PO DAILY 02/16/17 [History] LORazepam [Ativan] 0.5 mg PO DAILY PRN 02/16/17 [History] Linaclotide [Linzess] 145 mcg PO DAILY 02/16/17 [History] Montelukast [Singulair] 10 mg PO HS 02/16/17 [History] Oxygen 2 l NS HS PRN 02/16/17 [History] Quetiapine Fumarate [Quetiapine Fumarate ER] 200 mg PO HS 02/16/17 [History] Sertraline [Zoloft] 200 mg PO DAILY 02/16/17 [History] hydroCHLOROthiazide [Hydrochlorothiazide] 25 mg PO DAILY 02/16/17 [History] OxyCODONE Immed Rel [Roxicodone 5 MG] 5 mg PO Q6HR PRN 7 Days #28 tablet [Rx] 3 Allergy/AdvReac Type Severity Reaction Status Date / Time barium sulfate AdvReac Hives Verified 02/16/17 13:57 iodine AdvReac Hives Verified 02/16/17 13:57 latex AdvReac Hives Verified 02/16/17 14:22 Penicillins AdvReac Hives Verified 02/16/17 13:57 prochlorperazine AdvReac See Verified 02/16/17 13:57 [From Compazine] Comments - Meds/Allergy Pre-op Review Medications Reviewed: Yes Allergies Reviewed: Yes Beta Blockers on Current Med List: No Anesthesia Results - Labs 02/18/17 04:31 02/18/17 04:31 - Imaging EKG: report reviewed (02/17/2017 SINUS RHYTHM MARKED LEFT AXIS DEVIATION LEFT BUNDLE BRANCH BLOCK) Additional studies: 02/17/2017 Echo Impressions: LVEF 60-65%. Normal LV chamber size, wall thickness and function. Moderate left ventricular diastolic dysfunction. Normal right ventricular structure and function. Mild mitral regurgitation. No evidence of pulmonary hypertension. 02/17/2017 Stress Impression: Pharmacologic stress ECG is non-diagnostic for ischemia due to baseline LBBB. Gated EF = 69%. Perfusion imaging was negative for ischemia or infarct. Anesthesia Exam Vital Signs/O2 Sat/Glucose, Most Recent Temp Pulse Resp BP Pulse Ox 99.0 F 82 16 127/85 95 02/20/17 07:10 02/20/17 07:10 02/20/17 07:10 02/20/17 07:10 02/20/17 07:10 Blood Glucose* 116 Height: 5'5''/1.65 m Weight: 193 lbs/87.7 kg NPO (# of Hours): 8 Pain Scale: 0 Pain Scale Used: Numeric (1 - 10) - HEENT Pupil (Motor): EOMI Mallampati: II Teeth: Normal Denture Type: Upper: Complete Oral Opening: Greater than 3 - MAGNESIUM MILL OPERATOR LOC: Oriented MAGNESIUM MILL OPERATOR Motor: Normal RUE, Normal LUE, Normal RLE, Normal LLE, Normal Face MAGNESIUM MILL OPERATOR Sensory: Normal: RUE, LUE, RLE, LLE, Face - Cardiac Rhythm: Regular Murmur: None - Pulmonary Breath Sounds: bilateral Clear Respiratory Effort: Symmetrical Anesthesia Assess/Plan ASA Score: 3 Modified Nilda Scale for Level of Consciousness: Cooperative, oriented, and tranquil Anesthetic Plan: General Monitoring Plan: Standard Monitors Recovery Plan: PACU
[2017-02-20] MEDS: Budesonide/Formoterol 160/4.5 MDI IH SCH ×2 (08:03→20:50)
[2017-02-20] MEDS ORDERED: Albuterol 2.5 MG/3 ML NEBULIZER ONE (08:05)
[2017-02-20] MEDS ORDERED: Albuterol 2.5 MG/3 ML NEBULIZER IH ONE (08:11)
[2017-02-20] MEDS ORDERED: Ondansetron 4 MG/2 ML VIAL IVP ONE (08:11)
[2017-02-20] MEDS ORDERED: Naloxone 0.4 MG/ML INJ IVP PRN ×2 (08:11→11:31)
[2017-02-20] MEDS ORDERED: Ringers Solution, Lactated 1,000 ML IVC SCH ×2 (08:15→11:31)
[2017-02-20] MEDS ORDERED: Clindamycin 900 MG/50 ML 900 MG/50 ML IV.SOLN IVPB ONE (08:19)
[2017-02-20] MEDS ORDERED: Ketamine *HR* 500 MG/10 ML MDV ONE (08:35)
[2017-02-20] MEDS ORDERED: Lidocaine -MPF 4% 5 ML AMPUL ONE (08:45)
--- NOTE | 2017-02-20 09:15 | Orthopedic Operative Note ---
Date of procedure: 02/20/17 Pre-op diagnosis: Painful left total knee Post-op diagnosis: same Procedure: Procedure: Left revision total knee Estimated blood loss: 200 Hardware: Metal and polyethylene replacement. Biomet SSK femur: 55 10x80, Tibia 67 10x 80 Exam Under anesthesia: Operative procedure: The patient was brought to the operating room and placed on the operating room table. After general anesthesia was administered the operative knee was examined. Findings were noted in the exam under anesthesia. The operative extremity was prepped and draped in sterile surgical fashion. The patient received IV antibiotics prior to skin incision. A standard midline incision was made centered over the patella through the old incision. The incision was made through the skin and subcutaneous tissue. A medial parapatellar tendon approach was performed. Care was taken to preserve tissue along the medial aspect of the patella. And to protect the patella tendon. The deep MCL was released off the medial tibia. The infra patella fat pad was excised. Fluid was encountered this was normal joint fluid, Cultures were obtained and gram . The knee was brought into flexion the poly-was removed. The interface between the patient's femoral component and distal femur were disrupted with a osteotome and oscillating saw. Femoral component was removed removed without significant bone loss. Attention was then turned to the tibial component. The same technique was used to remove the tibial component by disrupting the interface between the patient's tibial component and the patients proximal tibia. The tibial component was removed without significant bone loss. The tibia was sized to a 67 it was reamed up to a 10 x 80 Trial had good fit and fixation. The femur was sized to a 55, was reamed up to a 10 x 80. The finishing guide was seated and the box cut was made. The trial had good fit and fixation. Both trial components were seated and the 16 constrained Laure was seated and secured. The knee had full flexion and full extension with no instability. Patella had excellent patella tracking. The trial components were removed. It was irrigated out with 2 L of pulse irrigation. The components were assembled on the back table, the tibia cemented first followed by the femur. The 16 constrained liner was seated and secure. The knee was brought to full extension while the cement hardened. After the cement hardened the knee was irrigated out again. The PA close the knee. The extensor mechanism was closed with a running #2 Fiberwire suture and a running #2 PDS suture. The deep tissue was irrigated and closed deep with #1 PDS suture superficially with 0 PDS suture. The skin was closed with skin felton. The patient was placed in a sterile dressing and postoperative brace. They were extubated and transferred to recovery room in stable condition. Anesthesia: GETA Surgeon: Khurram Sánchez Was there an physical therapy assistant present: Yes Ux Developer: Ashanti Malhotra Estimated blood loss (cc): 200 Condition: stable Disposition: PACU
[2017-02-20] MEDS: *HR* HYDROmorphone (PF) 1 MG/ML SYRINGE IVP PRN ×4 (10:00→10:36)
[2017-02-20 10:28] LABS: Hematocrit 42.3 % (35.3-44.9); Hemoglobin 13.6 g/dL (11.5-15.4)
[2017-02-20] MEDS ORDERED: Ondansetron 4 MG/2 ML VIAL IVP PRN (10:42)
[2017-02-20] MEDS ORDERED: Acetaminophen IV 1,000 MG/100 ML INFUS..BTL IVPB ONE (10:42)
--- NOTE | 2017-02-20 11:21 | Anesthesia Evaluation Post Op ---
Date of Encounter: 02/20/17 Time of Encounter: 11:20 - Vital Signs Vital Signs: Vital Signs/O2 Sat, Most Current Temp Pulse Resp BP Pulse Ox 98.9 F 94 16 144/98 93 02/20/17 10:57 02/20/17 11:07 02/20/17 11:07 02/20/17 11:07 02/20/17 11:07 - Lungs Lungs: Clear Ascult./Percussion - Airway Airway: Non-obstructed - Cardiovascular Regular Rate - Mental Status Mental Status: Asleep with brisk response to light stimulation - Nausea Vomiting Nausea Vomiting: Not Present - Hydration Hydration: Ice chips, Has not voided - Discharge PostOp Status: Transfer Patient to floor
[2017-02-20] MEDS ORDERED: Temazepam 15 MG CAPSULE PO PRN (11:31)
[2017-02-20] MEDS ORDERED: Sennosides 8.6 MG TABLET PO PRN (11:31)
[2017-02-20] MEDS ORDERED: *HR* OxyCODONE Immed Rel 5 MG TABLET PO PRN (11:31)
[2017-02-20] MEDS ORDERED: MOM Conc 10 ML UD.LIQ PO PRN (11:31)
[2017-02-20] MEDS ORDERED: Fluticasone Propionate Nasal 50 MCG/SPRAY BOTTLE NS PRN (11:31)
[2017-02-20] MEDS ORDERED: *HR* LORazepam 0.5 MG TABLET PO PRN (11:31)
[2017-02-20] MEDS: Ondansetron 4 MG/2 ML VIAL IVP PRN ×2 (12:14→21:09)
[2017-02-20] MEDS: Ketorolac 30 MG/ML VIAL IVP PRN (13:29)
--- NOTE | 2017-02-20 15:51 | Electrocardiograph Report ---
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
[2017-02-20] MEDS: Clindamycin 900 MG/50 ML 900 MG/50 ML IV.SOLN IVPB SCH ×2 (16:12→22:58)
[2017-02-20] MEDS: *HR* Enoxaparin 30 MG/0.3 ML SYRINGE SQ SCH (17:13)
[2017-02-20] MEDS ORDERED: *HR* Enoxaparin 30 MG/0.3 ML SYRINGE SQ SCH (18:00)
--- NOTE | 2017-02-20 18:18 | Internal Med Progress Note ---
Date of Encounter: 02/20/17 Time of Encounter: 18:00 - Assessment and plan (1) Osteoarthritis of left knee Current Visit: Yes Status: Acute Assessment and plan: Chronic. Patient total left knee today by Dr. Sánchez. Qualifiers: Osteoarthritis type: primary Qualified Code(s): M17.12 - Unilateral primary osteoarthritis, left knee (2) COPD (chronic obstructive pulmonary disease) Current Visit: Yes Status: Acute Assessment and plan: Chronic. CXR negative. No evidence of acute exacerbation. Continue home inhalers and medications. Monitor. Qualifiers: COPD type: unspecified COPD Qualified Code(s): J44.9 - Chronic obstructive pulmonary disease, unspecified (3) CAD (coronary artery disease) Current Visit: Yes Status: Acute Assessment and plan: Patient follows with cardiology [facility] [place]. Patient was here for preadmission testing for left total knee replacement. EKG showed new left bundle-branch block and patient reported intermittent chest pain for 3 weeks, was sent to the emergency room for evaluation. Her troponins were negative, EKG without any acute ST changes. Echocardiogram showed preserved EF with no wall motion abnormality or valvular dysfunction. Stress test was negative for ischemia or infarct. Patient was evaluated by cardiology who noted that was most likely not anginal chest pain was possibly revealed secondary to heart failure with preserved EF due to diastolic dysfunction and/or hypertension. They recommended aggressive medical management and no indication for LHC. Chest pain is reproducible with deep inspiration and palpation. Continue aspirin and continue telemetry. Continue pain medication. Qualifiers: Coronary Disease-Associated Artery/Lesion type: [place] artery [place] vs. transplanted heart: [place] heart Associated angina: with unspecified angina Qualified Code(s): I25.119 - Atherosclerotic heart disease of [place] coronary artery with unspecified angina pectoris (4) DVT prophylaxis Current Visit: Yes Status: Acute Assessment and plan: Bilateral foot pumps are placed. (5) RSV infection Current Visit: Yes Status: Acute Assessment and plan: Respiratory panel positive for RSV. Afebrile, WBC trending down. CXR without infiltrate. Supportive care. Patient wearing O2 at 2 L. She reports she desaturates without 02. Lungs clear and diminished, no respiratory distress. (6) Diabetes Current Visit: Yes Status: Chronic Assessment and plan: A1c 5.2%. Continue SSI, diabetic diet and accuchecks achs. Qualifiers: Diabetes mellitus type: type 2 Diabetes mellitus complication status: with unspecified complications Diabetes mellitus custodial insulin use: without custodial use Qualified Code(s): E11.8 - Type 2 diabetes mellitus with unspecified complications (7) HLD (hyperlipidemia) Current Visit: Yes Status: Chronic Assessment and plan: Chronic. Continue home medications. Qualifiers: Hyperlipidemia type: unspecified Qualified Code(s): E78.5 - Hyperlipidemia , unspecified (8) HTN (hypertension) Current Visit: Yes Status: Chronic Assessment and plan: Chronic. Continue home medications. Monitor vitals. Qualifiers: Hypertension type: unspecified Qualified Code(s): I10 - Essential (primary ) hypertension (9) Status post revision of total replacement of left knee Current Visit: Yes Status: Acute Assessment and plan: Status post left knee total replacement by Dr. Sánchez today. Continue pain medication per orthopedics Maintain knee immobilizer Ortho to follow. - Time Spent With Patient less than 15 minutes - Subjective Interval history: Pt was seen and assessed at bedside at 1800. She is alert and awake, oriented. She reports increasing pain and is requesting Dilaudid for postop pain. Continue pain medication that is ordered by Dr. Sánchez. She denies headache, blurred vision, neck pain, chest pain or shortness of breath. No abdominal pain or vomiting, though she does report nausea. She is tolerating by mouth fluids well. - Constitutional Vitals: Temp Pulse Resp BP Pulse Ox 98.1 F 85 15 122/82 93 02/20/17 16:47 02/20/17 16:47 02/20/17 16:47 02/20/17 16:47 02/20/17 16:47 General appearance: Present: cooperative, A&O X 3, no acute distress, answers questions appropriately - Head Head exam: Present: atraumatic, normal inspection, normocephalic - Eye Eye exam: Present: normal appearance, conjuntiva pink, sclera anicteric - Neck Neck exam general surgery: Present: supple, trachea midline. Absent: lymphadenopathy - Respiratory Respiratory exam: Present: CTAB. Absent: accessory muscle use, chest wall tenderness, rales, respiratory distress, rhonchi, wheezes - Cardiovascular Cardiovascular exam: Present: RRR, +S1, +S2. Absent: diastolic murmur, gallop, rubs, systolic murmur - GI/Abdominal GI/Abdominal exam: Present: hepatomegaly, normal bowel sounds, soft. Absent: distended, tenderness - Extremities Exam Extremities exam: Present: tenderness, warm, radial pulses palpable and symmetrical. Absent: calf tenderness, cyanotic, pedal edema - Neurological Exam Neurological exam: Present: alert, oriented X3, no focal deficits. Absent: facial droop, speech deficit - Skin Skin exam: Present: dry, intact, normal color, warm Internal Medicine: Result - Labs CBC & Chem 7: 02/20/17 10:02 02/18/17 04:31 Labs: Short CBC 02/20/17 Range/Units 10:02 Hgb 13.6 (11.5-15.4) g/dL Hct 42.3 (35.3-44.9) % - ABG Interpretation ABG results: PT/INR, D-dimer PT 12.2 Seconds (9.4-12.1) H 02/16/17 13:44 - VTE Documentation of Mechanical Device: Venous foot pump, device Consult Discharge Plan - Plan Referrals: NONE,PCP [Primary Care Provider] -
[2017-02-20] MEDS: Acetaminophen IV 1,000 MG/100 ML INFUS..BTL IVPB PRN (20:03)
[2017-02-21] MEDS: *HR* OxyCODONE Immed Rel 5 MG TABLET PO PRN ×4 (02:54→17:49)
[2017-02-21] MEDS: *HR* Enoxaparin 30 MG/0.3 ML SYRINGE SQ SCH ×2 (05:05→17:13)
[2017-02-21 05:30] LABS: Hematocrit 34.8 % (35.3-44.9)
[2017-02-21 05:40] LABS: Hemoglobin 11.5 g/dL (11.5-15.4)
[2017-02-21 05:56] LABS: BUN/Creatinine Ratio 14 (6-26); Blood Urea Nitrogen 7 mg/dL (6-20); Carbon Dioxide 26 mEq/L (23-29); Chloride 100 mEq/L (98-107); Glucose 142 mg/dL (70-105); Osmolality,Calculated 286 (280-300); Potassium 3.6 mEq/L (3.5-5.1); Sodium 138 mEq/L (136-145); eGFR For African Americans > 60 (> 60); eGFR For Non-African Americans > 60 (> 60)
[2017-02-21] MEDS: Ketorolac 30 MG/ML VIAL IVP PRN ×2 (07:07→13:41)
--- NOTE | 2017-02-21 07:18 | Orthopedics Progress Note ---
Date of Encounter: 02/21/17 Time of Encounter: 07:17 Subjective Interval history: Patient experiencing pain out of proportion increased Ativan Afebrile vital signs stable. Operative extremity: Neurovascularly intact Dressing clean dry and intact Calves nontender Assessment and plan: Continue with postoperative care hematocrit 34 Objective Vital signs: Vital Signs Temp Pulse Resp BP Pulse Ox 02/21/17 06:41 97.8 F 82 20 128/86 93 02/21/17 03:57 98.4 F 82 19 138/85 95 02/20/17 23:37 98.5 F 83 19 133/88 94 02/20/17 20:50 20 92 02/20/17 19:53 98.7 F 80 19 130/84 95 02/20/17 16:47 98.1 F 85 15 122/82 93 02/20/17 14:37 98.3 F 85 128/90 94 02/20/17 13:39 98.4 F 93 16 122/94 91 02/20/17 12:30 90 142/95 95 02/20/17 12:00 98 138/93 96 02/20/17 11:43 99.3 F 100 16 130/98 94 02/20/17 11:17 97.7 F 98 18 149/100 92 02/20/17 11:07 94 16 144/98 93 02/20/17 10:57 98.9 F 98 18 138/98 92 02/20/17 10:47 104 20 119/82 93 02/20/17 10:37 100 18 139/91 93 02/20/17 10:27 98.9 F 103 20 134/94 92 02/20/17 10:17 98 16 118/101 92 02/20/17 10:07 96 18 144/95 92 02/20/17 09:57 97 16 165/110 92 02/20/17 09:47 99.4 F 93 12 153/111 93 Intake and Output 02/20/17 02/20/17 02/21/17 15:59 23:59 07:59 Intake Total 100 / 100 920 / 920 1050 / 1050 Output Total 1800 / 1800 2074 / 2074 Balance 100 / -100 -880 / -880 -1025 / -1025 Intake: IV Fluids 100 / 100 50 / 50 50 / 50 Ofirmev 1,000 mg/100 ml 1,000 100 / 100 mg In 100 ml @ 400 mls/hr IVPB ONCE ONE Rx#:[id number] Cleocin Premix 900 MG/50 ML 900 50 / 50 50 / 50 mg In 50 ml @ 50 mls/hr IVPB Q8H [facility] Rx#:[id number] Oral 870 / 870 1000 / 1000 Output: Urine 1800 / 1800 2074 / 2074 Other: Blood Glucose* 154 203 102 - Labs CBC & BMP: 02/21/17 04:54 02/21/17 04:54 Labs: Abnormal lab results WBC 11.5 K/mcL (4.3-11.1) H 02/18/17 04:31 Hct 34.8 % (35.3-44.9) L 02/21/17 04:54 RDW 15.4 % (11.5-14.5) H 02/18/17 04:31 PT 12.2 Seconds (9.4-12.1) H 02/16/17 13:44 Creatinine 0.49 mg/dL (0.60-1.20) L 02/21/17 04:54 Glucose 142 mg/dL (70-105) H 02/21/17 04:54 POC Glucose 203 (58-89) H 02/20/17 20:14 LDL Cholesterol, Calc 101 mg/dL (0-99) H 02/18/17 04:31 RSV (PCR) DETECTED (Not Detect) A 02/18/17 09:59 - VTE Documentation of Mechanical Device: Venous foot pump, device Consult Discharge Plan - Plan Referrals: NONE,PCP [Primary Care Provider] -
[2017-02-21] MEDS: Ondansetron 4 MG/2 ML VIAL IVP PRN ×2 (07:37→13:41)
[2017-02-21] MEDS: hydroCHLOROthiazide 25 MG TABLET PO SCH (09:04)
[2017-02-21] MEDS: Furosemide 20 MG TABLET PO SCH (09:04)
[2017-02-21] MEDS: Aspirin 81 MG TAB.CHEW PO SCH (09:04)
[2017-02-21] MEDS: *HR* LORazepam 0.5 MG TABLET PO PRN ×2 (09:05→17:08)
[2017-02-21] MEDS: Linaclotide [Linzess] 145 MCG PO SCH (11:09)
[2017-02-21] MEDS: Budesonide/Formoterol 160/4.5 MDI IH SCH ×2 (11:26→20:22)
--- NOTE | 2017-02-21 16:25 | Internal Med Progress Note ---
Date of Encounter: 02/21/17 Time of Encounter: 16:22 - Assessment and plan (1) Status post revision of total replacement of left knee Current Visit: Yes Status: Acute Assessment and plan: Status post left knee total replacement by Dr. Sánchez 02/20/17 - doing well Continue pain medication per orthopedics Maintain knee immobilizer Ortho to follow. (2) CAD (coronary artery disease) Current Visit: Yes Status: Acute Assessment and plan: Patient follows with cardiology [facility]. Patient was here for preadmission testing for left total knee replacement. EKG showed new left bundle-branch block and patient reported intermittent chest pain for 3 weeks, was sent to the emergency room for evaluation. Her troponins were negative, EKG without any acute ST changes. Echocardiogram showed preserved EF with no wall motion abnormality or valvular dysfunction. Stress test was negative for ischemia or infarct. Patient was evaluated by cardiology who noted that was most likely not anginal chest pain was possibly revealed secondary to heart failure with preserved EF due to diastolic dysfunction and/or hypertension. They recommended aggressive medical management and no indication for LHC. Chest pain is reproducible with deep inspiration and palpation. Continue aspirin and continue telemetry. Continue pain medication. Qualifiers: Coronary Disease-Associated Artery/Lesion type: [place] artery [place] vs. transplanted heart: [place] heart Associated angina: with unspecified angina Qualified Code(s): I25.119 - Atherosclerotic heart disease of [place] coronary artery with unspecified angina pectoris (3) COPD (chronic obstructive pulmonary disease) Current Visit: Yes Status: Acute Assessment and plan: Chronic. CXR negative. No evidence of acute exacerbation. Continue home inhalers and medications. Monitor. Qualifiers: COPD type: unspecified COPD Qualified Code(s): J44.9 - Chronic obstructive pulmonary disease, unspecified (4) Diabetes Current Visit: Yes Status: Chronic Assessment and plan: A1c 5.2%. Continue SSI, diabetic diet and accuchecks achs. Qualifiers: Diabetes mellitus type: type 2 Diabetes mellitus complication status: with unspecified complications Diabetes mellitus termite control technician insulin use: without termite control technician use Qualified Code(s): E11.8 - Type 2 diabetes mellitus with unspecified complications (5) HLD (hyperlipidemia) Current Visit: Yes Status: Chronic Assessment and plan: Chronic. Continue home medications. Qualifiers: Hyperlipidemia type: unspecified Qualified Code(s): E78.5 - Hyperlipidemia , unspecified (6) HTN (hypertension) Current Visit: Yes Status: Chronic Assessment and plan: Chronic. Continue home medications. Monitor vitals. Qualifiers: Hypertension type: unspecified Qualified Code(s): I10 - Essential (primary ) hypertension (7) LBBB (left bundle branch block) Current Visit: No Status: Chronic (8) Mitral valve regurgitation Current Visit: No Status: Chronic Qualifiers: Cardiac valve disease etiology: etiology unspecified Qualified Code(s): I34.0 - Nonrheumatic mitral (valve) insufficiency (9) RSV infection Current Visit: Yes Status: Acute Assessment and plan: Respiratory panel positive for RSV. Afebrile, WBC trending down. CXR without infiltrate. Supportive care. Patient wearing O2 at 2 L. She reports she desaturates without 02. Lungs clear and diminished, no respiratory distress. (10) DVT prophylaxis Current Visit: Yes Status: Acute Assessment and plan: Bilateral foot pumps are placed. - Subjective Interval history: Patient reports severe pain, states it is 8/10 without Dilaudid. Denies fevers/ chills, n/v, chest pain, sob, palpitations. - Constitutional Vitals: Temp Pulse Resp BP Pulse Ox 97.9 F 81 18 124/76 94 02/21/17 15:10 02/21/17 15:10 02/21/17 15:10 02/21/17 15:10 02/21/17 15:10 General appearance: Present: cooperative, A&O X 3, no acute distress, answers questions appropriately Exam: - Head Head exam: Present: atraumatic, normal inspection, normocephalic - Eye Eye exam: Present: normal appearance, conjuntiva pink, sclera anicteric - Neck Neck exam general surgery: Present: supple, trachea midline. Absent: lymphadenopathy - Respiratory Respiratory exam: Present: CTAB. Absent: accessory muscle use, chest wall tenderness, rales, respiratory distress, rhonchi, wheezes - Cardiovascular Cardiovascular exam: Present: RRR, +S1, +S2. Absent: diastolic murmur, gallop, rubs, systolic murmur - GI/Abdominal GI/Abdominal exam: Present: hepatomegaly, normal bowel sounds, soft. Absent: distended, tenderness - Extremities Exam Extremities exam: Present: tenderness, warm, radial pulses palpable and symmetrical. Absent: calf tenderness, cyanotic, pedal edema - Neurological Exam Neurological exam: Present: alert, oriented X3, no focal deficits. Absent: facial droop, speech deficit - Skin Skin exam: Present: dry, intact, normal color, warm Internal Medicine: Result - Labs CBC & Chem 7: 02/21/17 04:54 02/21/17 04:54 Labs: Short CBC 02/21/17 Range/Units 04:54 Hgb 11.5 D (11.5-15.4) g/dL Hct 34.8 L (35.3-44.9) % BMP 02/21/17 04:54 Sodium 138 Potassium 3.6 Chloride 100 Carbon Dioxide 26 BUN 7 Creatinine 0.49 L Glucose 142 H Calcium 9.0 - ABG Interpretation ABG results: PT/INR, D-dimer PT 12.2 Seconds (9.4-12.1) H 02/16/17 13:44 - VTE Documentation of Mechanical Device: Venous foot pump, device Consult Discharge Plan - Plan Referrals: NONE,PCP [Primary Care Provider] -
[2017-02-21] MEDS: Acetaminophen IV 1,000 MG/100 ML INFUS..BTL IVPB PRN (19:06)
[2017-02-22] MEDS: *HR* OxyCODONE Immed Rel 5 MG TABLET PO PRN ×5 (00:36→22:28)
[2017-02-22] MEDS: Acetaminophen IV 1,000 MG/100 ML INFUS..BTL IVPB PRN ×2 (01:54→20:15)
[2017-02-22] MEDS: *HR* Enoxaparin 30 MG/0.3 ML SYRINGE SQ SCH ×2 (05:01→18:58)
[2017-02-22 06:50] LABS: Hematocrit 32.6 % (35.3-44.9); Hemoglobin 10.7 g/dL (11.5-15.4)
[2017-02-22 07:09] LABS: BUN/Creatinine Ratio 12 (6-26); Blood Urea Nitrogen 6 mg/dL (6-20); Calcium 8.8 mg/dL (8.6-10.3); Carbon Dioxide 29 mEq/L (23-29); Chloride 99 mEq/L (98-107); Glucose 119 mg/dL (70-105); Osmolality,Calculated 283 (280-300); Potassium 3.3 mEq/L (3.5-5.1); Sodium 137 mEq/L (136-145); eGFR For African Americans > 60 (> 60); eGFR For Non-African Americans > 60 (> 60)
[2017-02-22] MEDS: Budesonide/Formoterol 160/4.5 MDI IH SCH ×2 (08:22→19:52)
--- NOTE | 2017-02-22 08:35 | Event Note ---
Date of Encounter: 02/21/17 Time of Encounter: 12:00 PCR- POD#1 L TKR revision Sánchez 02/20/17 PCR - Patient seen at bedside. Pain control: Adequate Participating in PT. All questions and concerns addressed. Educated on use of incentive spirometer, ambulation, and hydration. Patient educated on post-operative restrictions and care. Addressed: Patient RSV+ with contact precautions. Patient very distraught regarding cramping in thigh and calf musculature. No calf tenderness to palpation. Adding muscle relaxer to help with spasming. D/C plan: Home with HH
[2017-02-22] MEDS: hydroCHLOROthiazide 25 MG TABLET PO SCH (08:38)
[2017-02-22] MEDS: Furosemide 20 MG TABLET PO SCH (08:38)
[2017-02-22] MEDS: *HR* LORazepam 0.5 MG TABLET PO PRN (08:39)
[2017-02-22] MEDS: Aspirin 81 MG TAB.CHEW PO SCH (08:39)
[2017-02-22] MEDS: Linaclotide [Linzess] 145 MCG PO SCH (08:39)
--- NOTE | 2017-02-22 09:07 | Orthopedics Progress Note ---
Date of Encounter: 02/22/17 Time of Encounter: 09:06 Subjective Interval history: Patient doing better this morning Afebrile vital signs stable. Operative extremity: Neurovascularly intact Dressing clean dry and intact Calves nontender Assessment and plan: Continue with postoperative care hematocrit 32.6 stable for discharge Objective Vital signs: Vital Signs Temp Pulse Resp BP Pulse Ox 02/22/17 08:27 16 98 02/22/17 06:35 99.8 F H 109 18 120/84 94 02/22/17 05:31 98.6 F 94 18 125/75 93 02/22/17 00:29 97.7 F 82 16 127/84 92 02/21/17 20:45 98.1 F 93 128/81 92 02/21/17 20:22 17 94 02/21/17 15:10 97.9 F 81 18 124/76 94 02/21/17 11:29 20 97 02/21/17 11:09 98.0 F 80 20 127/88 97 Intake and Output 02/21/17 02/22/17 02/22/17 23:59 07:59 15:59 Intake Total 340 / 340 200 / 200 Output Total 100 / 100 900 / 900 Balance 240 / 240 -900 / -900 200 / 200 Intake: IV Fluids 100 / 100 100 / 100 Ofirmev 1,000 mg/100 ml 1,000 100 / 100 100 / 100 mg In 100 ml @ 400 mls/hr IVPB Q6H PRN Rx#:[id number] Oral 240 / 240 100 / 100 Output: Urine 100 / 100 900 / 900 Other: Meal Dinner Breakfast Percent of Meal Consumed 100% 10% # Voids 1 Blood Glucose* 137 126 - Labs CBC & BMP: 02/22/17 06:15 02/22/17 06:15 Labs: Abnormal lab results WBC 11.5 K/mcL (4.3-11.1) H 02/18/17 04:31 Hgb 10.7 g/dL (11.5-15.4) L 02/22/17 06:15 Hct 32.6 % (35.3-44.9) L 02/22/17 06:15 RDW 15.4 % (11.5-14.5) H 02/18/17 04:31 PT 12.2 Seconds (9.4-12.1) H 02/16/17 13:44 Potassium 3.3 mEq/L (3.5-5.1) L 02/22/17 06:15 Creatinine 0.49 mg/dL (0.60-1.20) L 02/22/17 06:15 Glucose 119 mg/dL (70-105) H 02/22/17 06:15 POC Glucose 137 (58-89) H 02/21/17 20:48 LDL Cholesterol, Calc 101 mg/dL (0-99) H 02/18/17 04:31 RSV (PCR) DETECTED (Not Detect) A 02/18/17 09:59 - VTE Documentation of Mechanical Device: Venous foot pump, device Consult Discharge Plan - Plan Referrals: NONE,PCP [Primary Care Provider] -
[2017-02-22] MEDS: Ondansetron 4 MG/2 ML VIAL IVP PRN (10:13)
--- NOTE | 2017-02-22 12:43 | Discharge Summary ---
Date of Encounter: 02/22/17 Time of Encounter: 12:38 - Discharge Diagnosis (1) Status post revision of total replacement of left knee Priority: Primary Status: Acute (2) CAD (coronary artery disease) Priority: Secondary Status: Acute Qualifiers: Coronary Disease-Associated Artery/Lesion type: [place] artery [place] vs. transplanted heart: [place] heart Associated angina: with unspecified angina Qualified Code(s): I25.119 - Atherosclerotic heart disease of [place] coronary artery with unspecified angina pectoris (3) COPD (chronic obstructive pulmonary disease) Priority: Secondary Status: Acute Qualifiers: COPD type: unspecified COPD Qualified Code(s): J44.9 - Chronic obstructive pulmonary disease, unspecified (4) Diabetes Priority: Secondary Status: Chronic Qualifiers: Diabetes mellitus type: type 2 Diabetes mellitus complication status: with unspecified complications Diabetes mellitus termite treater insulin use: without termite treater use Qualified Code(s): E11.8 - Type 2 diabetes mellitus with unspecified complications (5) HLD (hyperlipidemia) Priority: Secondary Status: Chronic Qualifiers: Hyperlipidemia type: unspecified Qualified Code(s): E78.5 - Hyperlipidemia , unspecified (6) HTN (hypertension) Priority: Secondary Status: Chronic Qualifiers: Hypertension type: unspecified Qualified Code(s): I10 - Essential (primary ) hypertension (7) LBBB (left bundle branch block) Priority: Secondary Status: Chronic (8) Mitral valve regurgitation Priority: Secondary Status: Chronic Qualifiers: Cardiac valve disease etiology: etiology unspecified Qualified Code(s): I34.0 - Nonrheumatic mitral (valve) insufficiency (9) RSV infection Priority: Secondary Status: Acute (10) DVT prophylaxis Priority: Secondary Status: Acute - Discharge Medications Prescriptions: OxyCODONE Immed Rel [Roxicodone 5 MG] 5 mg PO Q6HR PRN 7 Days #28 tablet PRN Reason: Pain Cyclobenzaprine [Flexeril] 5 mg PO TID PRN #15 tablet PRN Reason: Spasms Docusate [Colace] 100 mg PO BID #14 capsule Lidocaine Patch [Lidoderm 5% patch] 1 each TP DAILY PRN #5 adh..patch PRN Reason: Breakthrough Pain Home Medications: Aclidinium [place] [Tudorza Pressair] 400 mcg IH BID 02/16/17 [History] Albuterol Sulfate [Albuterol Inhaler] 2 puff IH Q4HR PRN 01/11/18 [History] Budesonide/Formoterol 160/4.5 [Symbicort 160/4.5] 1 puff IH BIDR 02/16/17 [ History] EPINEPHrine [Epipen] 0.3 mg IM ONCE PRN 02/16/17 [History] Fluticasone Propionate Nasal [Flonase] 1 spr NS DAILY PRN 02/16/17 [History] Furosemide [Lasix] 20 mg PO DAILY 02/16/17 [History] LORazepam [Ativan] 0.5 mg PO DAILY PRN 02/16/17 [History] Linaclotide [Linzess] 145 mcg PO DAILY 02/16/17 [History] Montelukast [Singulair] 10 mg PO HS 02/16/17 [History] Oxygen 2 l NS HS PRN 02/16/17 [History] Quetiapine Fumarate [Quetiapine Fumarate ER] 200 mg PO HS 02/16/17 [History] Sertraline [Zoloft] 200 mg PO DAILY 02/16/17 [History] hydroCHLOROthiazide [Hydrochlorothiazide] 25 mg PO DAILY 02/16/17 [History] Cyclobenzaprine [Flexeril] 5 mg PO TID PRN #15 tablet 02/22/17 [Rx] Docusate [Colace] 100 mg PO BID #14 capsule 02/22/17 [Rx] Lidocaine Patch [Lidoderm 5% patch] 1 each TP DAILY PRN #5 adh..patch 02/22/17 [ Rx] OxyCODONE Immed Rel [Roxicodone 5 MG] 5 mg PO Q6HR PRN 7 Days #28 tablet [Rx] Allergies/Adverse Reactions: 3 Allergy/AdvReac Type Severity Reaction Status Date / Time barium sulfate AdvReac Hives Verified 02/16/17 13:57 iodine AdvReac Hives Verified 02/16/17 13:57 latex AdvReac Hives Verified 02/16/17 14:22 Penicillins AdvReac Hives Verified 02/16/17 13:57 prochlorperazine AdvReac See Verified 02/16/17 13:57 [From Compazine] Comments Date of admission: 02/20/17 09:19 Primary care physician: PCP NONE Discharging clinician: Markus Rosenthal - Patient Status Disposition: Home Health Service Condition: Good Functional capacity at discharge: wheelchair bound Overall status at discharge: patient is progressing back to baseline - Discharge Instructions Follow Up With: NONE,PCP [Primary Care Provider] - - Diet and Activity Activity: as per physical therapy Diet: advance to your usual diet Hospital course: Ms. Joe is a 46 year old female with history of CAD, COPD, DM, HTN presented to ED for acute chest pain for one week. She was in pre-op on day of admission for testing for a left knee revision surgery. She was complaining of chest pain. An EKG showed new LBBB. She described chest pain as squeezing, radiating to neck and left arm. She was admitted for further monitoring. Serial troponin obtained, negative times three. Echocardiogram showed EF 60%, no wall motion abnormality. EKG had no ST/T wave changes. Cardiology consulted. Patient had nuclear stress test done which was negative. She had positive RSV test. Cardiology evaluated patient and deemed no need for left heart catheterization was needed. Patient was stable from cardiac standpoint. Patient underwent revision of total replacement of left knee on 02/20/17, she tolerated procedure without issue. Standard post operative care continued, patient was discharged home in stable condition. - Time Spent with Patient Total time spent providing and/or coordinating discharge services: - Constitutional Vitals: Temp Pulse Resp BP Pulse Ox 100.0 F H 100 18 142/90 93 02/22/17 10:42 02/22/17 10:42 02/22/17 10:42 02/22/17 10:42 02/22/17 10:42 General appearance: Present: cooperative, A&O X 3, no acute distress, answers questions appropriately Exam: - Head Head exam: Present: atraumatic, normal inspection, normocephalic - Eye Eye exam: Present: normal appearance, conjuntiva pink, sclera anicteric - Neck Neck exam general surgery: Present: supple, trachea midline. Absent: lymphadenopathy - Respiratory Respiratory exam: Present: CTAB. Absent: accessory muscle use, chest wall tenderness, rales, respiratory distress, rhonchi, wheezes - Cardiovascular Cardiovascular exam: Present: RRR, +S1, +S2. Absent: diastolic murmur, gallop, rubs, systolic murmur - GI/Abdominal GI/Abdominal exam: Present: hepatomegaly, normal bowel sounds, soft. Absent: distended, tenderness - Extremities Exam Extremities exam: Present: tenderness, warm, radial pulses palpable and symmetrical. Absent: calf tenderness, cyanotic, pedal edema - Neurological Exam Neurological exam: Present: alert, oriented X3, no focal deficits. Absent: facial droop, speech deficit - Skin Skin exam: Present: dry, intact, normal color, warm - VTE Documentation of Mechanical Device: Venous foot pump, device
--- NOTE | 2017-02-22 13:03 | Physician Discharge Referral ---
Home Health/Hosp Referral Info Transfer to: Home Health Provider in Charge Post Discharge: PCP - Diagnosis (1) Chest pain Priority: Primary Status: Chronic (2) Status post revision of total replacement of left knee Priority: Secondary Status: Acute (3) CAD (coronary artery disease) Priority: Secondary Status: Acute (4) COPD (chronic obstructive pulmonary disease) Priority: Secondary Status: Acute (5) Diabetes Priority: Secondary Status: Chronic (6) HLD (hyperlipidemia) Priority: Secondary Status: Chronic (7) HTN (hypertension) Priority: Secondary Status: Chronic (8) LBBB (left bundle branch block) Priority: Secondary Status: Chronic (9) Mitral valve regurgitation Priority: Secondary Status: Chronic (10) RSV infection Priority: Secondary Status: Acute (11) DVT prophylaxis Priority: Secondary Status: Acute - Respiratory Orders Smoking Cessation: Smoking cessation has been advised. For more information, call the [place] [employer] Quit Line at 6-828-KMWN-NOW. - Diet/Nutrition Diet/Nutrition Orders: Cardiac, No Concentrated Sweets - Activity Activity: List: as per physical therapy - Services Needed Following services are medically necessary services: Home Health Aide, Physical Therapy, Occupational Therapy - Transfer Medications Prescriptions: OxyCODONE Immed Rel [Roxicodone 5 MG] 5 mg PO Q6HR PRN 7 Days #28 tablet PRN Reason: Pain Cyclobenzaprine [Flexeril] 5 mg PO TID PRN #15 tablet PRN Reason: Spasms Docusate [Colace] 100 mg PO BID #14 capsule Lidocaine Patch [Lidoderm 5% patch] 1 each TP DAILY PRN #5 adh..patch PRN Reason: Breakthrough Pain Home Medications: Aclidinium [place] [Tudorza Pressair] 400 mcg IH BID 02/16/17 [History] Albuterol Sulfate [Albuterol Inhaler] 2 puff IH Q4HR PRN 02/16/17 [History] Budesonide/Formoterol 160/4.5 [Symbicort 160/4.5] 1 puff IH BIDR 02/16/17 [ History] EPINEPHrine [Epipen] 0.3 mg IM ONCE PRN 02/16/17 [History] Fluticasone Propionate Nasal [Flonase] 1 spr NS DAILY PRN 02/16/17 [History] Furosemide [Lasix] 20 mg PO DAILY 02/16/17 [History] LORazepam [Ativan] 0.5 mg PO DAILY PRN 02/16/17 [History] Linaclotide [Linzess] 145 mcg PO DAILY 02/16/17 [History] Montelukast [Singulair] 10 mg PO HS 02/16/17 [History] Oxygen 2 l NS HS PRN 02/16/17 [History] Quetiapine Fumarate [Quetiapine Fumarate ER] 200 mg PO HS 02/16/17 [History] Sertraline [Zoloft] 200 mg PO DAILY 02/16/17 [History] hydroCHLOROthiazide [Hydrochlorothiazide] 25 mg PO DAILY 02/16/17 [History] Cyclobenzaprine [Flexeril] 5 mg PO TID PRN #15 tablet 02/22/17 [Rx] Docusate [Colace] 100 mg PO BID #14 capsule 02/22/17 [Rx] Lidocaine Patch [Lidoderm 5% patch] 1 each TP DAILY PRN #5 adh..patch 02/22/17 [ Rx] OxyCODONE Immed Rel [Roxicodone 5 MG] 5 mg PO Q6HR PRN 7 Days #28 tablet [Rx] Allergies/Adverse Reactions: 3 Allergy/AdvReac Type Severity Reaction Status Date / Time barium sulfate AdvReac Hives Verified 02/16/17 13:57 iodine AdvReac Hives Verified 02/16/17 13:57 latex AdvReac Hives Verified 02/16/17 14:22 Penicillins AdvReac Hives Verified 02/16/17 13:57 prochlorperazine AdvReac See Verified 02/16/17 13:57 [From Compazine] Comments Certification: Further, I certify that my clinical findings support that this patient is homebound (i.e. absences from home require considerable and taxing effort and are for medical reasons or advent services or infrequently or short duration when for other reasons) because: Homebound Reason: Post-surgery restriction and or conditions limit ability to leave home Attestation: My signature below is to certify that this patient is under my care and that I, or nurse practitioner, or a physician's operational assistant working with me, has a face-to -face encounter with this patient.
--- NOTE | 2017-02-22 16:48 | Event Note ---
Date of Encounter: 02/22/17 Time of Encounter: 12:55 PCR- POD#2 L TKR revision Sánchez 02/20/17 PCR - Patient seen at bedside. Pain control: Adequate, currently in a comfortable position with pain relief Participating in PT. All questions and concerns addressed. Educated on use of incentive spirometer, ambulation, and hydration. Patient educated on post-operative restrictions and care. Addressed: Patient RSV+ with contact precautions. D/C plan: Home with HH today
--- NOTE | 2017-02-22 16:57 | Event Note ---
Date of Encounter: 02/22/17 Time of Encounter: 16:54 Patient ready for discharge today, however developed fever with tachycardia. In post-operative setting, concern for developing sepsis. Will obtain stat blood culture, urine/sputum/antigens. Start empiric antibiotic therapy. Hold from discharging patient.
[2017-02-22] MEDS ORDERED: Vancomycin 1,250 MG in D5% in Water 250 ML IVPB SCH (17:00)
[2017-02-22] MEDS: Vancomycin 1,250 MG in D5% in Water 250 ML IVPB SCH (18:58)
[2017-02-22] MEDS ORDERED: *HR* Heparin 5,000 UNIT/ML VIAL IVP ONE (21:00)
[2017-02-22] MEDS ORDERED: *HR* Heparin 5,000 UNIT/ML VIAL IVP PRN ×2 (21:00)
[2017-02-22] MEDS ORDERED: Heparin 25,000 UNIT/500 ML D5W 25,000 UNIT/500 ML BAG IVC SCH (21:00)
--- NOTE | 2017-02-22 21:12 | Event Note ---
<Francia Negron - Last Filed: 02/22/17 21:12> Date of Encounter: 02/22/17 Time of Encounter: 20:30 Notified per nursing staff patient experiencing left sided chest pain, shortness of breath as well as tachycardia. She is on 2 L nasal cannula and has had a drop in SPO2 93%, she did have a fever and tachycardia earlier in the day blood cultures and urine cultures were sent empirically treated with vancomycin and cefepime. Concern for PE patient is allergic to iodine, we will obtain Doppler of left extremity rule out DVT, initiated on heparin drip and obtain VQ scan in a.m. Will obtain EKG, troponin I did speak with who is on-call for orthopedics concerning initiating heparin drip, agreed with anticoagulating patient. I also discussed this case with Dr. Julio who agree with plan, and saw patient at bedside . <Aneudy Antunez - Last Filed: 02/23/17 06:50> Date of Encounter: 02/23/17 I discussed the patient case with Francia, patient's nurse, and saw patient myself as well. I requested the above and agree with Francia's plan. Dr. Peoples notified of our concerns as well.
[2017-02-22 21:28] LABS: Hematocrit 32.8 % (35.3-44.9); Hemoglobin 10.9 g/dL (11.5-15.4); Mean Corpuscular HGB Conc 33.2 g/dL (31.6-35.5); Mean Corpuscular Hemoglobin 28.5 pg (28.0-33.3); Mean Corpuscular Volume 85.9 fL (83.0-100.0); Mean Platelet Volume 9.5 fL (9.4-12.4); Platelet Count 315 K/mcL (140-400); Red Blood Count 3.82 M/mcL (3.82-4.97); Red Cell Distribution Width 14.6 % (11.5-14.5)
[2017-02-22 21:35] LABS: INR 1.3; Prothrombin Time 13.6 Seconds (9.4-12.1)
[2017-02-22 21:38] LABS: Activated Partial Thrombo Time 36.9 Seconds (26.0-36.0)
[2017-02-23] MEDS: Cefepime HCl 2,000 MG in Water for inj. (sterile) 20 ML 20 ML IVP SCH ×3 (00:39→16:34)
[2017-02-23] MEDS: *HR* OxyCODONE Immed Rel 5 MG TABLET PO PRN ×4 (04:23→21:30)
[2017-02-23 05:29] LABS: Basophils # 0.1 K/mcL (0.0-0.2); Basophils % 0.6 %; Eosinophils # 0.8 K/mcL (0.0-0.6); Eosinophils % 7.4 %; Hematocrit 35.7 % (35.3-44.9); Hemoglobin 11.8 g/dL (11.5-15.4); Immature Granulocytes % 0.7 % (0-4); Lymphocytes # 2.9 K/mcL (0.6-4.6); Lymphocytes % 27.7 %; Mean Corpuscular HGB Conc 33.1 g/dL (31.6-35.5); Mean Corpuscular Hemoglobin 28.6 pg (28.0-33.3); Mean Corpuscular Volume 86.7 fL (83.0-100.0); Mean Platelet Volume 9.5 fL (9.4-12.4); Monocytes # 0.9 K/mcL (0.0-1.3); Monocytes % 8.2 %; Neutrophils # 5.9 K/mcL (1.6-8.9); Platelet Count 334 K/mcL (140-400); Red Blood Count 4.12 M/mcL (3.82-4.97); Red Cell Distribution Width 14.6 % (11.5-14.5); Segmented Neutrophils % 55.4 %
[2017-02-23 05:46] LABS: BUN/Creatinine Ratio 13 (6-26); Blood Urea Nitrogen 7 mg/dL (6-20); Calcium 9.5 mg/dL (8.6-10.3); Carbon Dioxide 32 mEq/L (23-29); Chloride 93 mEq/L (98-107); Glucose 132 mg/dL (70-105); Osmolality,Calculated 278 (280-300); Sodium 134 mEq/L (136-145); eGFR For African Americans > 60 (> 60); eGFR For Non-African Americans > 60 (> 60)
[2017-02-23] MEDS: Vancomycin 1,250 MG in D5% in Water 250 ML IVPB SCH ×2 (06:03→18:10)
[2017-02-23] MEDS: Budesonide/Formoterol 160/4.5 MDI IH SCH ×2 (08:10→22:02)
[2017-02-23] MEDS: Ondansetron 4 MG/2 ML VIAL IVP PRN ×2 (08:28→21:33)
--- NOTE | 2017-02-23 08:46 | Orthopedics Progress Note ---
Date of Encounter: 02/23/17 Time of Encounter: 08:43 Subjective Interval history: S: Talked to hospitalist last night. The patient is being treated for presumed PE. She had a left revision knee arthroplasty on Monday. Expected postoperative pain the left knee. O: Afebrile and vital signs are stable Left knee wound is clean, dry, and intact. She can proceed was flexed by first ankle and toes and the foot is sensate and well-perfused. A: Post revision left total knee arthroplasty Presumed pulmonary embolism P: Resume postoperative care Pulmonary embolism treatment per the hospitalist We will sign off, follow-up with Dr. Sánchez as scheduled. Objective Vital signs: Vital Signs Temp Pulse Resp BP Pulse Ox 02/23/17 08:14 16 120/84 95 02/23/17 06:24 98.5 F 96 18 120/84 93 02/23/17 04:24 98.8 F 87 17 127/73 91 02/23/17 00:23 99.0 F 98 18 122/79 90 02/22/17 20:25 99.5 F 101 19 125/78 92 02/22/17 19:51 18 93 02/22/17 15:34 100.4 F H 107 16 128/78 93 02/22/17 10:42 100.0 F H 100 18 142/90 93 02/22/17 10:00 96 Intake and Output 02/22/17 02/23/17 02/23/17 23:59 07:59 15:59 Intake Total 1350 / 1350 194 / 194 Output Total 1100 / 1100 1300 / 1300 Balance 250 / 250 -1106 / -1106 Intake: IV Fluids 350 / 350 194 / 194 Heparin 25,000 UNIT/500 ML D5W 174 / 174 25,000 unit In 500 ml @ 14 UNIT /KG/HR 24.556 mls/hr IVC . [id number] PAUL Rx#:[id number] Maxipime 2,000 MG In Water for inj. (sterile) 20 ML @ 300 mls/ hr IVP Q8HR PAUL Rx#:[id number] Ofirmev 1,000 mg/100 ml 1,000 100 / 100 mg In 100 ml @ 400 mls/hr IVPB Q6H PRN Rx#:[id number] Vancocin 1,250 MG In Dextrose 5 250 / 250 % 250 ML @ 166.67 mls/hr IVPB Q12H [facility] Rx#:[id number] Oral 1000 / 1000 Output: Urine 1100 / 1100 1300 / 1300 Other: Blood Glucose* 153 139 - Labs CBC & BMP: 02/23/17 05:21 02/23/17 05:21 Labs: Abnormal lab results RDW 14.6 % (11.5-14.5) H 02/23/17 05:21 Eosinophils # 0.8 K/mcL (0.0-0.6) H 02/23/17 05:21 PT 13.6 Seconds (9.4-12.1) H 02/22/17 21:22 APTT 45.5 Seconds (26.0-36.0) H 02/23/17 05:21 Sodium 134 mEq/L (136-145) L 02/23/17 05:21 Potassium 3.0 mEq/L (3.5-5.1) L 02/23/17 05:21 Chloride 93 mEq/L (98-107) L 02/23/17 05:21 Carbon Dioxide 32 mEq/L (23-29) H 02/23/17 05:21 Creatinine 0.55 mg/dL (0.60-1.20) L 02/23/17 05:21 Glucose 132 mg/dL (70-105) H 02/23/17 05:21 POC Glucose 139 (58-89) H 02/23/17 07:41 Calculated Osmolality 278 (280-300) L 02/23/17 05:21 LDL Cholesterol, Calc 101 mg/dL (0-99) H 02/18/17 04:31 RSV (PCR) DETECTED (Not Detect) A 02/18/17 09:59 - VTE Documentation of Mechanical Device: Venous foot pump, device Consult Discharge Plan - Plan Referrals: NONE,PCP [Primary Care Provider] - Prescriptions: Cyclobenzaprine [Flexeril] 5 mg PO TID PRN #15 tablet PRN Reason: Spasms Docusate [Colace] 100 mg PO BID #14 capsule Lidocaine Patch [Lidoderm 5% patch] 1 each TP DAILY PRN #5 adh..patch PRN Reason: Breakthrough Pain OxyCODONE Immed Rel [Roxicodone 5 MG] 5 mg PO Q6HR PRN 7 Days #28 tablet PRN Reason: Pain
[2017-02-23] MEDS: hydroCHLOROthiazide 25 MG TABLET PO SCH (10:35)
[2017-02-23] MEDS: Aspirin 81 MG TAB.CHEW PO SCH (10:35)
[2017-02-23] MEDS: Furosemide 20 MG TABLET PO SCH (10:36)
[2017-02-23] MEDS: Linaclotide [Linzess] 145 MCG PO SCH (11:43)
--- NOTE | 2017-02-23 12:29 | Event Note ---
Date of Encounter: 02/23/17 Time of Encounter: 08:00 Subjective: Patient was seen this morning doing well without complaints. Patient states that she is resting well. Objective: Afebrile vital signs stable. Awaiting results of VQ scan to r/o PE. Patient has continued to admit to chest pain and shortness of breath as she was diagnosed with RSV end of last week. Operative extremity: Neurovascularly intact Dressing clean dry and intact Calves nontender Assessment: POD#3 L TKR revision Gonzalo 02/20/17 Plan: Continue with postoperative care Hemoglobin 11.8/ Hematocrit 35.7 Discharge if cleared by Hospitalist team
--- NOTE | 2017-02-23 18:06 | Internal Med Progress Note ---
Date of Encounter: 02/23/17 Time of Encounter: 18:04 - Assessment and plan (1) Chest pain Current Visit: Yes Status: Acute Assessment and plan: Cardiology was consulted as patient does have CAD. patient reports history of VT at 29 years of age. Follows with cardiology at [facility]. Preadmission testing EKG with new LBBB and patient reported intermittent chest pain therefore was sent to ER. Serial troponin negative, EKG without acute ST changes. TTE with EF 60%, no wall motion abnormality. Nuclear stress test negative for ischemia or infarct. Evaluated by Cardiology who noted angina equivalent unlikely and chest pain possibly secondary to HF with preserved EF due to DD and/or hypertension may be culprit. Aggressive medical management recommended, no indication for LHC at this time. Furthermore, chest pain is reproducible bn exam. -acute coronary syndrom ruled out by cardiology workup on admission. - V/Q scan showed low probability of PE. Sputum culture results (many WBC, moderate G+ cocci, no epithelial cells) with fever and tachycardia suggests that cause is most likely pneumonia-related chest pain. Qualifiers: Chest pain type: unspecified Qualified Code(s): R07.9 - Chest pain, unspecified (2) Sepsis due to pneumonia Current Visit: Yes Status: Acute Assessment and plan: Sputum culture with G+ cocci, with no contaminate in specimine 3 SIRS criteria for fever, leukocytosis, and tachycardia on 02/22. 02/23: WBC, HR, and temp have normalized. -Will continue treatment including coverage for HCAP with vancomycin/cefepime. -Blood cultures pending. (3) Pneumonia Current Visit: Yes Status: Acute Qualifiers: Pneumonia type: due to unspecified organism Laterality: unspecified laterality Lung location: unspecified part of lung Qualified Code(s): J18.9 - Pneumonia, unspecified organism (4) Status post revision of total replacement of left knee Current Visit: Yes Status: Acute Assessment and plan: Status post left knee total replacement by Dr. Sánchez 02/20/17 - doing well Continue pain medication per orthopedics Maintain knee immobilizer Ortho to follow. (5) CAD (coronary artery disease) Current Visit: Yes Status: Acute Assessment and plan: Patient follows with cardiology [facility]. Patient was here for preadmission testing for left total knee replacement. EKG showed new left bundle-branch block and patient reported intermittent chest pain for 3 weeks, was sent to the emergency room for evaluation. Her troponins were negative, EKG without any acute ST changes. Echocardiogram showed preserved EF with no wall motion abnormality or valvular dysfunction. Stress test was negative for ischemia or infarct. Patient was evaluated by cardiology who noted that was most likely not anginal chest pain was possibly revealed secondary to heart failure with preserved EF due to diastolic dysfunction and/or hypertension. They recommended aggressive medical management and no indication for LHC. Chest pain is reproducible with deep inspiration and palpation. Continue aspirin and continue telemetry. Continue pain medication. Qualifiers: Coronary Disease-Associated Artery/Lesion type: [place] artery [place] vs. transplanted heart: [place] heart Associated angina: with unspecified angina Qualified Code(s): I25.119 - Atherosclerotic heart disease of [place] coronary artery with unspecified angina pectoris (6) COPD (chronic obstructive pulmonary disease) Current Visit: Yes Status: Acute Assessment and plan: Chronic. CXR negative. No evidence of acute exacerbation. Continue home inhalers and medications. Monitor. Qualifiers: COPD type: unspecified COPD Qualified Code(s): J44.9 - Chronic obstructive pulmonary disease, unspecified (7) Diabetes Current Visit: Yes Status: Chronic Assessment and plan: A1c 5.2%. Continue SSI, diabetic diet and accuchecks achs. Qualifiers: Diabetes mellitus type: type 2 Diabetes mellitus complication status: with unspecified complications Diabetes mellitus vermin exterminator insulin use: without snf use Qualified Code(s): E11.8 - Type 2 diabetes mellitus with unspecified complications (8) HLD (hyperlipidemia) Current Visit: Yes Status: Chronic Assessment and plan: Chronic. Continue home medications. Qualifiers: Hyperlipidemia type: unspecified Qualified Code(s): E78.5 - Hyperlipidemia , unspecified (9) HTN (hypertension) Current Visit: Yes Status: Chronic Assessment and plan: Chronic. Continue home medications. Monitor vitals. Qualifiers: Hypertension type: unspecified Qualified Code(s): I10 - Essential (primary ) hypertension (10) LBBB (left bundle branch block) Current Visit: No Status: Chronic (11) Mitral valve regurgitation Current Visit: No Status: Chronic Qualifiers: Cardiac valve disease etiology: etiology unspecified Qualified Code(s): I34.0 - Nonrheumatic mitral (valve) insufficiency (12) RSV infection Current Visit: Yes Status: Acute Assessment and plan: Respiratory panel positive for RSV. Afebrile, WBC trending down. CXR without infiltrate. Supportive care. Patient wearing O2 at 2 L. She reports she desaturates without 02. Lungs clear and diminished, no respiratory distress. (13) HTN (hypertension) Current Visit: Yes Status: Acute Assessment and plan: Chronic. BP well controlled. Cont home medication. Monitor BP per admission vitals. Qualifiers: Hypertension type: essential hypertension Qualified Code(s): I10 - Essential (primary) hypertension (14) COPD (chronic obstructive pulmonary disease) Current Visit: No Status: Chronic Qualifiers: COPD type: unspecified COPD Qualified Code(s): J44.9 - Chronic obstructive pulmonary disease, unspecified (15) Chronic respiratory failure Current Visit: Yes Status: Acute Assessment and plan: She is on 2L O2 at baseline prior to admission Qualifiers: Respiratory failure complication: hypoxia Qualified Code(s): J96.11 - Chronic respiratory failure with hypoxia (16) DVT prophylaxis Current Visit: Yes Status: Acute Assessment and plan: Lovenox 40 mg SQ - Subjective Interval history: Patient has complaints of pain, fairly unchanged since yesterday, does improve with pain medication. Denies fevers/chills, n/v, chest pain, sob, palpitations. - Constitutional Vitals: Temp Pulse Resp BP Pulse Ox 99.5 F 94 20 117/76 93 02/23/17 16:01 02/23/17 16:01 02/23/17 16:01 02/23/17 16:01 02/23/17 16:01 General appearance: Present: cooperative, A&O X 3, no acute distress, answers questions appropriately Exam: - Head Head exam: Present: atraumatic, normal inspection, normocephalic - Eye Eye exam: Present: normal appearance, conjuntiva pink, sclera anicteric - Neck Neck exam general surgery: Present: supple, trachea midline. Absent: lymphadenopathy - Respiratory Respiratory exam: Present: CTAB. Absent: accessory muscle use, chest wall tenderness, rales, respiratory distress, rhonchi, wheezes - Cardiovascular Cardiovascular exam: Present: RRR, +S1, +S2. Absent: diastolic murmur, gallop, rubs, systolic murmur - GI/Abdominal GI/Abdominal exam: Present: hepatomegaly, normal bowel sounds, soft. Absent: distended, tenderness - Extremities Exam Extremities exam: Present: tenderness, warm, radial pulses palpable and symmetrical. Absent: calf tenderness, cyanotic, pedal edema - Neurological Exam Neurological exam: Present: alert, oriented X3, no focal deficits. Absent: facial droop, speech deficit - Skin Skin exam: Present: dry, intact, normal color, warm Internal Medicine: Result - Labs CBC & Chem 7: 02/23/17 05:21 02/23/17 05:21 Labs: Short CBC 02/22/17 02/23/17 Range/Units 21:22 05:21 WBC 12.8 H 10.6 (4.3-11.1) K/mcL Hgb 10.9 L 11.8 (11.5-15.4) g/dL Hct 32.8 L 35.7 (35.3-44.9) % Plt Count 315 334 (140-400) K/mcL Neutrophils # 5.9 (1.6-8.9) K/mcL BMP 02/23/17 05:21 Sodium 134 L Potassium 3.0 L Chloride 93 L Carbon Dioxide 32 H BUN 7 Creatinine 0.55 L Glucose 132 H Calcium 9.5 Cardiac Enzymes 02/22/17 Range/Units 21:22 Troponin I < 0.03 (< 0.04) ng/mL - ABG Interpretation ABG results: PT/INR, D-dimer PT 13.6 Seconds (9.4-12.1) H 02/22/17 21:22 - Impressions Impressions Pulmonary Perfusion Imaging 02/23/17 08:31 IMPRESSION: Low Probability for Pulmonary Embolus. D/ / Marcelino Mondragon MD / Marcelino Mondragon MD Interpreting Provider: Marcelino Mondragon MD - VTE Documentation of Mechanical Device: Venous foot pump, device Consult Discharge Plan - Plan Referrals: NONE,PCP [Primary Care Provider] - Prescriptions: OxyCODONE Immed Rel [Roxicodone 5 MG] 5 mg PO Q6HR PRN 7 Days #28 tablet PRN Reason: Pain Cyclobenzaprine [Flexeril] 5 mg PO TID PRN #15 tablet PRN Reason: Spasms Docusate [Colace] 100 mg PO BID #14 capsule Lidocaine Patch [Lidoderm 5% patch] 1 each TP DAILY PRN #5 adh..patch PRN Reason: Breakthrough Pain
[2017-02-24] MEDS: Cefepime HCl 2,000 MG in Water for inj. (sterile) 20 ML 20 ML IVP SCH ×3 (00:19→19:17)
[2017-02-24] MEDS: *HR* OxyCODONE Immed Rel 5 MG TABLET PO PRN ×3 (05:34→20:36)
[2017-02-24] MEDS: *HR* Enoxaparin 40 MG/0.4 ML SYRINGE SQ SCH (05:34)
[2017-02-24] MEDS ORDERED: Vancomycin 1,750 MG in D5% in Water 500 ML IVPB ONE (06:31)
[2017-02-24] MEDS: Aspirin 81 MG TAB.CHEW PO SCH (09:39)
[2017-02-24] MEDS: Linaclotide [Linzess] 145 MCG PO SCH (09:39)
[2017-02-24] MEDS: hydroCHLOROthiazide 25 MG TABLET PO SCH (09:39)
[2017-02-24] MEDS: Budesonide/Formoterol 160/4.5 MDI IH SCH ×2 (10:19→22:10)
[2017-02-24] MEDS ORDERED: Potassium Chloride Elixir 20 MEQ/15 ML UDC PO ONE (10:21)
[2017-02-24] MEDS: Ondansetron 4 MG/2 ML VIAL IVP PRN (11:34)
--- NOTE | 2017-02-24 17:05 | Event Note ---
Date of Encounter: 02/24/17 Time of Encounter: 12:45 PCR- POD#4 L TKR revision Sánchez 02/20/17 PCR - Patient seen at bedside. Pain control: Adequate, currently nauseous from being up to beside Participating in PT. All questions and concerns addressed. Educated on use of incentive spirometer, ambulation, and hydration. Patient educated on post-operative restrictions and care. Addressed: Patient RSV+ with contact precautions. Hospitalist managing, concern for probable pneumonia D/C plan: Home with HH once medically cleared. Discussed with hospitalist, sea for orthopedics to sign off at this time. Please call for any future questions.
[2017-02-24] MEDS ORDERED: Vancomycin 1,500 MG in D5% in Water 250 ML IVPB SCH (18:00)
[2017-02-24] MEDS: Vancomycin 1,750 MG in D5% in Water 500 ML IVPB SCH (19:18)
--- NOTE | 2017-02-24 21:47 | Internal Med Progress Note ---
Date of Encounter: 02/24/17 Time of Encounter: 13:44 - Assessment and plan (1) Chest pain Current Visit: Yes Status: Acute Assessment and plan: Cardiology was consulted as patient does have CAD. patient reports history of AK at 29 years of age. Follows with cardiology at [facility]. Preadmission testing EKG with new LBBB and patient reported intermittent chest pain therefore was sent to ER. Serial troponin negative, EKG without acute ST changes. TTE with EF 60%, no wall motion abnormality. Nuclear stress test negative for ischemia or infarct. Evaluated by Cardiology who noted angina equivalent unlikely and chest pain possibly secondary to HF with preserved EF due to DD and/or hypertension may be culprit. Aggressive medical management recommended, no indication for LHC at this time. Furthermore, chest pain is reproducible bn exam. -acute coronary syndrom ruled out by cardiology workup on admission. - V/Q scan showed low probability of PE. Sputum culture results (many WBC, moderate G+ cocci, no epithelial cells) with fever and tachycardia suggests that cause is most likely pneumonia-related chest pain. Qualifiers: Chest pain type: unspecified Qualified Code(s): R07.9 - Chest pain, unspecified (2) Sepsis due to pneumonia Current Visit: Yes Status: Acute Assessment and plan: Sputum culture with G+ cocci, with no contaminate in specimine 3 SIRS criteria for fever, leukocytosis, and tachycardia on 02/22. 02/23: WBC, HR, and temp have normalized. -Will continue treatment including coverage for HCAP with vancomycin/cefepime. -Blood cultures 02/22: NGTD, Will need negative blood cultures at least 48 hours with clinical improvement and hemodynamic stability for patient to be able for discharge. If she does not improve, will seek other source of infection (3) Pneumonia Current Visit: Yes Status: Acute Qualifiers: Pneumonia type: due to unspecified organism Laterality: unspecified laterality Lung location: unspecified part of lung Qualified Code(s): J18.9 - Pneumonia, unspecified organism (4) Status post revision of total replacement of left knee Current Visit: Yes Status: Acute Assessment and plan: Status post left knee total replacement by Dr. Sánchez 02/20/17 - doing well Continue pain medication per orthopedics Maintain knee immobilizer Ortho to follow. (5) CAD (coronary artery disease) Current Visit: Yes Status: Acute Assessment and plan: Patient follows with cardiology [facility]. Patient was here for preadmission testing for left total knee replacement. EKG showed new left bundle-branch block and patient reported intermittent chest pain for 3 weeks, was sent to the emergency room for evaluation. Her troponins were negative, EKG without any acute ST changes. Echocardiogram showed preserved EF with no wall motion abnormality or valvular dysfunction. Stress test was negative for ischemia or infarct. Patient was evaluated by cardiology who noted that was most likely not anginal chest pain was possibly revealed secondary to heart failure with preserved EF due to diastolic dysfunction and/or hypertension. They recommended aggressive medical management and no indication for LHC. Chest pain is reproducible with deep inspiration and palpation. Continue aspirin and continue telemetry. Continue pain medication. Qualifiers: Coronary Disease-Associated Artery/Lesion type: [place] artery [place] vs. transplanted heart: [place] heart Associated angina: with unspecified angina Qualified Code(s): I25.119 - Atherosclerotic heart disease of [place] coronary artery with unspecified angina pectoris (6) COPD (chronic obstructive pulmonary disease) Current Visit: Yes Status: Acute Assessment and plan: Chronic. CXR negative. No evidence of acute exacerbation. Continue home inhalers and medications. Monitor. Qualifiers: COPD type: unspecified COPD Qualified Code(s): J44.9 - Chronic obstructive pulmonary disease, unspecified (7) Diabetes Current Visit: Yes Status: Chronic Assessment and plan: A1c 5.2%. Continue SSI, diabetic diet and accuchecks achs. Qualifiers: Diabetes mellitus type: type 2 Diabetes mellitus complication status: with unspecified complications Diabetes mellitus middle or intermediate school principal insulin use: without middle or intermediate school principal use Qualified Code(s): E11.8 - Type 2 diabetes mellitus with unspecified complications (8) HLD (hyperlipidemia) Current Visit: Yes Status: Chronic Assessment and plan: Chronic. Continue home medications. Qualifiers: Hyperlipidemia type: unspecified Qualified Code(s): E78.5 - Hyperlipidemia , unspecified (9) HTN (hypertension) Current Visit: Yes Status: Chronic Assessment and plan: Chronic. Continue home medications. Monitor vitals. Qualifiers: Hypertension type: unspecified Qualified Code(s): I10 - Essential (primary ) hypertension (10) LBBB (left bundle branch block) Current Visit: No Status: Chronic (11) Mitral valve regurgitation Current Visit: No Status: Chronic Qualifiers: Cardiac valve disease etiology: etiology unspecified Qualified Code(s): I34.0 - Nonrheumatic mitral (valve) insufficiency (12) RSV infection Current Visit: Yes Status: Acute Assessment and plan: Respiratory panel positive for RSV. Afebrile, WBC trending down. CXR without infiltrate. Supportive care. Patient wearing O2 at 2 L. She reports she desaturates without 02. Lungs clear and diminished, no respiratory distress. (13) HTN (hypertension) Current Visit: Yes Status: Acute Assessment and plan: Chronic. BP well controlled. Cont home medication. Monitor BP per admission vitals. Qualifiers: Hypertension type: essential hypertension Qualified Code(s): I10 - Essential (primary) hypertension (14) COPD (chronic obstructive pulmonary disease) Current Visit: No Status: Chronic Qualifiers: COPD type: unspecified COPD Qualified Code(s): J44.9 - Chronic obstructive pulmonary disease, unspecified (15) Chronic respiratory failure Current Visit: Yes Status: Acute Assessment and plan: She is on 2L O2 at baseline prior to admission Qualifiers: Respiratory failure complication: hypoxia Qualified Code(s): J96.11 - Chronic respiratory failure with hypoxia (16) DVT prophylaxis Current Visit: Yes Status: Acute Assessment and plan: Lovenox 40 mg SQ - Subjective Interval history: She states she is feeling better from acute illness standpoint. States she is still having knee pain. Denies fevers/chills, n/v, chest pain, sob, palpitations. Nursing did note to me this morning she is still diaphoretic. - Constitutional Vitals: Temp Pulse Resp BP Pulse Ox 98.0 F 91 16 121/79 91 02/24/17 19:41 02/24/17 19:41 02/24/17 19:41 02/24/17 19:41 02/24/17 19:41 Exam: General appearance: Present: cooperative, A&O X 3, no acute distress, answers questions appropriately Exam: - Head Head exam: Present: atraumatic, normal inspection, normocephalic - Eye Eye exam: Present: normal appearance, conjuntiva pink, sclera anicteric - Neck Neck exam general surgery: Present: supple, trachea midline. Absent: lymphadenopathy - Respiratory Respiratory exam: Present: CTAB. Absent: accessory muscle use, chest wall tenderness, rales, respiratory distress, rhonchi, wheezes - Cardiovascular Cardiovascular exam: Present: RRR, +S1, +S2. Absent: diastolic murmur, gallop, rubs, systolic murmur - GI/Abdominal GI/Abdominal exam: Present: hepatomegaly, normal bowel sounds, soft. Absent: distended, tenderness - Extremities Exam Extremities exam: Present: tenderness, warm, radial pulses palpable and symmetrical. Absent: calf tenderness, cyanotic, pedal edema - Neurological Exam Neurological exam: Present: alert, oriented X3, no focal deficits. Absent: facial droop, speech deficit - Skin Skin exam: Present: dry, intact, normal color, warm Internal Medicine: Result - Labs CBC & Chem 7: 02/23/17 05:21 02/23/17 05:21 - ABG Interpretation ABG results: PT/INR, D-dimer PT 13.6 Seconds (9.4-12.1) H 02/22/17 21:22 - Impressions Impressions Chest X-Ray 02/24/17 11:40 IMPRESSION: No evidence for acute cardiopulmonary process. D/ / Devon Gonzalez MD / Devon Gonzalez MD Interpreting Provider: Devon Gonzalez MD - VTE Documentation of Mechanical Device: Venous foot pump, device Consult Discharge Plan - Plan Referrals: NONE,PCP [Non-Partnered Physician] - Prescriptions: OxyCODONE Immed Rel [Roxicodone 5 MG] 5 mg PO Q6HR PRN 7 Days #28 tablet PRN Reason: Pain Cyclobenzaprine [Flexeril] 5 mg PO TID PRN #15 tablet PRN Reason: Spasms Docusate [Colace] 100 mg PO BID #14 capsule Lidocaine Patch [Lidoderm 5% patch] 1 each TP DAILY PRN #5 adh..patch PRN Reason: Breakthrough Pain
[2017-02-25] MEDS: Cefepime HCl 2,000 MG in Water for inj. (sterile) 20 ML 20 ML IVP SCH ×3 (00:25→08:40)
[2017-02-25] MEDS: *HR* Enoxaparin 40 MG/0.4 ML SYRINGE SQ SCH (06:24)
[2017-02-25] MEDS: *HR* OxyCODONE Immed Rel 5 MG TABLET PO PRN (06:24)
[2017-02-25] MEDS: Vancomycin 1,750 MG in D5% in Water 500 ML IVPB SCH (06:28)
--- NOTE | 2017-02-25 06:55 | Electrocardiograph Report ---
[address] [place], [place] [address] Test Date: 2017-02-22 Pat Name: Sena Joe Department: 114 Room: [facility] Gender: F Variety Performer: [id number] : 1970 Requested By: Francia Negron Order Number: [id number] Reading MD: Peña Davison MD Measurements Intervals [place] Rate: 90 P: 43 FL: 210 QRS: -57 QRSD: 146 T: 108 QT: 416 QTc: 464 Interpretive Statements SINUS RHYTHM WITH FIRST DEGREE AV BLOCK MARKED LEFT AXIS DEVIATION LEFT BUNDLE BRANCH BLOCK Electronically Signed On 02-25-2017 6:54:13 EST by Peña Davison MD
[2017-02-25] MEDS: Furosemide 20 MG TABLET PO SCH (08:40)
[2017-02-25] MEDS: Aspirin 81 MG TAB.CHEW PO SCH (08:40)
[2017-02-25] MEDS: hydroCHLOROthiazide 25 MG TABLET PO SCH (08:40)
[2017-02-25] MEDS: Linaclotide [Linzess] 145 MCG PO SCH (08:41)
--- NOTE | 2017-02-25 10:26 | Electrocardiograph Report ---
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
[2017-02-25] MEDS: Budesonide/Formoterol 160/4.5 MDI IH SCH (10:29)
[2017-02-25 12:05] VITALS: BP 119/82
[2017-02-25] MEDS: Ondansetron 4 MG/2 ML VIAL IVP PRN (12:59)
--- NOTE | 2017-02-25 13:01 | Discharge Summary ---
Date of Encounter: 02/25/17 Time of Encounter: 12:59 - Discharge Diagnosis (1) Chest pain Priority: Primary Status: Resolved Qualifiers: Chest pain type: unspecified Qualified Code(s): R07.9 - Chest pain, unspecified (2) Status post revision of total replacement of left knee Priority: Secondary Status: Acute (3) Sepsis due to pneumonia Priority: Secondary Status: Acute (4) Pneumonia Priority: Secondary Status: Acute Qualifiers: Pneumonia type: due to unspecified organism Laterality: unspecified laterality Lung location: unspecified part of lung Qualified Code(s): J18.9 - Pneumonia, unspecified organism (5) CAD (coronary artery disease) Priority: Secondary Status: Acute Qualifiers: Coronary Disease-Associated Artery/Lesion type: [place] artery [place] vs. transplanted heart: [place] heart Associated angina: with unspecified angina Qualified Code(s): I25.119 - Atherosclerotic heart disease of [place] coronary artery with unspecified angina pectoris (6) COPD (chronic obstructive pulmonary disease) Priority: Secondary Status: Acute Qualifiers: COPD type: unspecified COPD Qualified Code(s): J44.9 - Chronic obstructive pulmonary disease, unspecified (7) Diabetes Priority: Secondary Status: Chronic Qualifiers: Diabetes mellitus type: type 2 Diabetes mellitus complication status: with unspecified complications Diabetes mellitus [facility] insulin use: without terminologist use Qualified Code(s): E11.8 - Type 2 diabetes mellitus with unspecified complications (8) HLD (hyperlipidemia) Priority: Secondary Status: Chronic Qualifiers: Hyperlipidemia type: unspecified Qualified Code(s): E78.5 - Hyperlipidemia , unspecified (9) HTN (hypertension) Priority: Secondary Status: Chronic Qualifiers: Hypertension type: unspecified Qualified Code(s): I10 - Essential (primary ) hypertension (10) LBBB (left bundle branch block) Priority: Secondary Status: Chronic (11) Mitral valve regurgitation Priority: Secondary Status: Chronic Qualifiers: Cardiac valve disease etiology: etiology unspecified Qualified Code(s): I34.0 - Nonrheumatic mitral (valve) insufficiency (12) RSV infection Priority: Secondary Status: Acute (13) HTN (hypertension) Priority: Secondary Status: Acute Qualifiers: Hypertension type: essential hypertension Qualified Code(s): I10 - Essential (primary) hypertension (14) COPD (chronic obstructive pulmonary disease) Priority: Secondary Status: Chronic Qualifiers: COPD type: unspecified COPD Qualified Code(s): J44.9 - Chronic obstructive pulmonary disease, unspecified (15) Chronic respiratory failure Priority: Secondary Status: Acute Qualifiers: Respiratory failure complication: hypoxia Qualified Code(s): J96.11 - Chronic respiratory failure with hypoxia (16) DVT prophylaxis Priority: Secondary Status: Acute - Discharge Medications Prescriptions: OxyCODONE Immed Rel [Roxicodone 5 MG] 5 mg PO Q6HR PRN 7 Days #28 tablet PRN Reason: Pain Cyclobenzaprine [Flexeril] 5 mg PO TID PRN #15 tablet PRN Reason: Spasms Docusate [Colace] 100 mg PO BID #14 capsule Levofloxacin [Levaquin] 750 mg PO DAILY 7 Days #7 tablet Lidocaine Patch [Lidoderm 5% patch] 1 each TP DAILY PRN #5 adh..patch PRN Reason: Breakthrough Pain Home Medications: Aclidinium [place] [Tudorza Pressair] 400 mcg IH BID 02/16/17 [History] Albuterol Sulfate [Albuterol Inhaler] 2 puff IH Q4HR PRN 02/16/17 [History] Budesonide/Formoterol 160/4.5 [Symbicort 160/4.5] 1 puff IH BIDR 02/16/17 [ History] EPINEPHrine [Epipen] 0.3 mg IM ONCE PRN 02/16/17 [History] Fluticasone Propionate Nasal [Flonase] 1 spr NS DAILY PRN 02/16/17 [History] Furosemide [Lasix] 20 mg PO DAILY 02/16/17 [History] LORazepam [Ativan] 0.5 mg PO DAILY PRN 02/16/17 [History] Linaclotide [Linzess] 145 mcg PO DAILY 02/16/17 [History] Montelukast [Singulair] 10 mg PO HS 02/16/17 [History] Oxygen 2 l NS HS PRN 02/16/17 [History] Quetiapine Fumarate [Quetiapine Fumarate ER] 200 mg PO HS 02/16/17 [History] Sertraline [Zoloft] 200 mg PO DAILY 02/16/17 [History] hydroCHLOROthiazide [Hydrochlorothiazide] 25 mg PO DAILY 02/16/17 [History] Cyclobenzaprine [Flexeril] 5 mg PO TID PRN #15 tablet 02/22/17 [Rx] Docusate [Colace] 100 mg PO BID #14 capsule 02/22/17 [Rx] Lidocaine Patch [Lidoderm 5% patch] 1 each TP DAILY PRN #5 adh..patch 02/22/17 [ Rx] OxyCODONE Immed Rel [Roxicodone 5 MG] 5 mg PO Q6HR PRN 7 Days #28 tablet [Rx] Levofloxacin [Levaquin] 750 mg PO DAILY 7 Days #7 tablet 02/25/17 [Rx] Allergies/Adverse Reactions: 3 Allergy/AdvReac Type Severity Reaction Status Date / Time barium sulfate AdvReac Hives Verified 02/16/17 13:57 iodine AdvReac Hives Verified 02/16/17 13:57 latex AdvReac Hives Verified 02/16/17 14:22 Penicillins AdvReac Hives Verified 02/16/17 13:57 prochlorperazine AdvReac See Verified 02/16/17 13:57 [From Compazine] Comments Procedures/tests Complete & Pending: Procedures Performed prior 72 hours Category Date Time Status VQ Scan [NM pul vent and perfuse] [NM] Routine Exams 02/23/17 08:31 Completed EKG [ECG 12 lead ECG] [ECG] Stat Y 02/22/17 21:02 Completed EKG [ECG 12 lead ECG] [ECG] Stat Y 02/24/17 11:39 Completed Venous Doppler [EV venous imaging LE LT] Stat Y 02/22/17 20:41 Completed Date of admission: 02/20/17 09:19 Primary care physician: Markus Rosenthal MD Discharging clinician: Markus Rosenthal - Patient Status Disposition: Home Health Service Condition: Good - Discharge Instructions Follow Up With: NONE,PCP [Non-Partnered Physician] - - Diet and Activity Activity: as per physical therapy Diet: diabetic diet, low fat, low cholesterol, low salt diet Hospital course: Ms. Joe is a 46 year old female with history of CAD, COPD, DM, HTN presented to ED for acute chest pain for one week. She was in pre-op on day of admission for testing for a left knee revision surgery. She was complaining of chest pain. An EKG showed new LBBB. She described chest pain as squeezing, radiating to neck and left arm. She was admitted for further monitoring. Serial troponin obtained, negative times three. Echocardiogram showed EF 60%, no wall motion abnormality. EKG had no ST/T wave changes. Cardiology consulted. Patient had nuclear stress test done which was negative. She had positive RSV test. Cardiology evaluated patient and deemed no need for left heart catheterization was needed. Patient was stable from cardiac standpoint. Patient underwent revision of total replacement of left knee on 02/20/17, she tolerated procedure without issue. Patient was about to be discharged but she suddenly developed fever with tachycardia. There was concern for sepsis or PE and so patient remained in hospital. She was placed on emperic antibiotic therapy. Patient then stated having left sided chest pain so she was placed temporarily on a heparin drip until a V/Q scan was done. V/Q scan was negative which rule out pulmonary embolism. She was treated for sepsis secondary to pneumonia with fever/leukocytosis and tachycardia. This was not likely infected joint as it was healing well without erythema or edema on physical exam. Patient was clinically improving and labs normalized. Blood cultures obtained on 02/22 have been negative after 3 days. Sputum culture grew G+ cocci. She was no longer septic and discharged home in stable condition to complete additional 7 days of Levaquin therapy. - Time Spent with Patient Total time spent providing and/or coordinating discharge services: - Constitutional Vitals: Temp Pulse Resp BP Pulse Ox 99 F 93 18 119/82 93 02/25/17 11:53 02/25/17 11:53 02/25/17 11:53 02/25/17 11:53 02/25/17 11:53 General appearance: Present: cooperative, A&O X 3, no acute distress, answers questions appropriately Exam: - Head Head exam: Present: atraumatic, normal inspection, normocephalic - Eye Eye exam: Present: normal appearance, conjuntiva pink, sclera anicteric - Neck Neck exam general surgery: Present: supple, trachea midline. Absent: lymphadenopathy - Respiratory Respiratory exam: Present: CTAB. Absent: accessory muscle use, chest wall tenderness, rales, respiratory distress, rhonchi, wheezes - Cardiovascular Cardiovascular exam: Present: RRR, +S1, +S2. Absent: diastolic murmur, gallop, rubs, systolic murmur - GI/Abdominal GI/Abdominal exam: Present: hepatomegaly, normal bowel sounds, soft. Absent: distended, tenderness - Extremities Exam Extremities exam: Present: tenderness, warm, radial pulses palpable and symmetrical. Absent: calf tenderness, cyanotic, pedal edema - Neurological Exam Neurological exam: Present: alert, oriented X3, no focal deficits. Absent: facial droop, speech deficit - Skin Skin exam: Present: dry, intact, normal color, warm - VTE Documentation of Mechanical Device: Venous foot pump, device
--- NOTE | 2017-02-25 13:14 | Physician Discharge Referral ---
Home Health/Hosp Referral Info Transfer to: Home Health - Diagnosis (1) Chest pain Priority: Primary Status: Resolved (2) Status post revision of total replacement of left knee Priority: Secondary Status: Acute (3) Sepsis due to pneumonia Priority: Secondary Status: Acute (4) Pneumonia Priority: Secondary Status: Acute (5) CAD (coronary artery disease) Priority: Secondary Status: Acute (6) COPD (chronic obstructive pulmonary disease) Priority: Secondary Status: Acute (7) Diabetes Priority: Secondary Status: Chronic (8) HLD (hyperlipidemia) Priority: Secondary Status: Chronic (9) HTN (hypertension) Priority: Secondary Status: Chronic (10) LBBB (left bundle branch block) Priority: Secondary Status: Chronic (11) Mitral valve regurgitation Priority: Secondary Status: Chronic (12) RSV infection Priority: Secondary Status: Acute (13) HTN (hypertension) Priority: Secondary Status: Acute (14) COPD (chronic obstructive pulmonary disease) Priority: Secondary Status: Chronic (15) Chronic respiratory failure Priority: Secondary Status: Acute (16) DVT prophylaxis Priority: Secondary Status: Acute - Respiratory Orders Smoking Cessation: Smoking cessation has been advised. For more information, call the [place] Tobacco Quit Line at 6-876-WEAJ-NOW. - Activity Activity: List: as per physical therapy - Services Needed Following services are medically necessary services: Nursing, Physical Therapy, Occupational Therapy - Transfer Medications Prescriptions: OxyCODONE Immed Rel [Roxicodone 5 MG] 5 mg PO Q6HR PRN 7 Days #28 tablet PRN Reason: Pain Cyclobenzaprine [Flexeril] 5 mg PO TID PRN #15 tablet PRN Reason: Spasms Docusate [Colace] 100 mg PO BID #14 capsule Levofloxacin [Levaquin] 750 mg PO DAILY 7 Days #7 tablet Lidocaine Patch [Lidoderm 5% patch] 1 each TP DAILY PRN #5 adh..patch PRN Reason: Breakthrough Pain Home Medications: Aclidinium [place] [Tudorza Pressair] 400 mcg IH BID 02/16/17 [History] Albuterol Sulfate [Albuterol Inhaler] 2 puff IH Q4HR PRN 02/16/17 [History] Budesonide/Formoterol 160/4.5 [Symbicort 160/4.5] 1 puff IH BIDR 02/16/17 [ History] EPINEPHrine [Epipen] 0.3 mg IM ONCE PRN 02/16/17 [History] Fluticasone Propionate Nasal [Flonase] 1 spr NS DAILY PRN 02/16/17 [History] Furosemide [Lasix] 20 mg PO DAILY 02/16/17 [History] LORazepam [Ativan] 0.5 mg PO DAILY PRN 02/16/17 [History] Linaclotide [Linzess] 145 mcg PO DAILY 02/16/17 [History] Montelukast [Singulair] 10 mg PO HS 02/16/17 [History] Oxygen 2 l NS HS PRN 02/16/17 [History] Quetiapine Fumarate [Quetiapine Fumarate ER] 200 mg PO HS 02/16/17 [History] Sertraline [Zoloft] 200 mg PO DAILY 02/16/17 [History] hydroCHLOROthiazide [Hydrochlorothiazide] 25 mg PO DAILY 02/16/17 [History] Cyclobenzaprine [Flexeril] 5 mg PO TID PRN #15 tablet 02/22/17 [Rx] Docusate [Colace] 100 mg PO BID #14 capsule 02/22/17 [Rx] Lidocaine Patch [Lidoderm 5% patch] 1 each TP DAILY PRN #5 adh..patch 02/22/17 [ Rx] OxyCODONE Immed Rel [Roxicodone 5 MG] 5 mg PO Q6HR PRN 7 Days #28 tablet [Rx] Levofloxacin [Levaquin] 750 mg PO DAILY 7 Days #7 tablet 02/25/17 [Rx] Allergies/Adverse Reactions: 3 Allergy/AdvReac Type Severity Reaction Status Date / Time barium sulfate AdvReac Hives Verified 02/16/17 13:57 iodine AdvReac Hives Verified 02/16/17 13:57 latex AdvReac Hives Verified 02/16/17 14:22 Penicillins AdvReac Hives Verified 02/16/17 13:57 prochlorperazine AdvReac See Verified 02/16/17 13:57 [From Compazine] Comments Certification: Further, I certify that my clinical findings support that this patient is homebound (i.e. absences from home require considerable and taxing effort and are for medical reasons or cheondoism services or infrequently or short duration when for other reasons) because: Homebound Reason: Post-surgery restriction and or conditions limit ability to leave home Attestation: My signature below is to certify that this patient is under my care and that I, or nurse practitioner, or a physician's pharmacy assistant working with me, has a face-to -face encounter with this patient.
[2017-02-25] MEDS ORDERED: Aminoglycoside Consult 1 EACH MC ONE (14:54)
--- NOTE | 2017-02-28 06:49 | Electrocardiograph Report ---
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
== END 2017-02-25 14:55 | disposition home health service (06) | DRG 950 ==
LOC: 3BNU 12:22 → EMEROO 12:22 → 3BNU 18:15 → SUATTDRO 02-20 09:19 → 3NENU 02-20 11:30
PROVIDERS: ADMIT Orthopaedic Surgery; ATTEND Student in an Organized Health Care Education/Training Program